=== PATIENT | male | born 1950 | race Caucasian/White ===

== ENCOUNTER → 2018-09-02 | Outpatient (CLI) | payer OTHER | END | disposition home or self-care (01) | LOC: SHCH 14:03 | PROVIDERS: ATTEND Internal Medicine Cardiovascular Disease | DX: I65.23 Occlusion and stenosis of bilateral carotid arteries (principal); I63.9 Cerebral infarction, unspecified | CPT/HCPCS: 93880 ==

== ENCOUNTER → 2019-04-26 | Outpatient (CLI) | payer OTHER | END | disposition home or self-care (01) | LOC: SHCH 12:24 | PROVIDERS: ATTEND Internal Medicine Cardiovascular Disease | DX: I11.9 Hypertensive heart disease without heart failure (principal) | CPT/HCPCS: 93306 ==

== ENCOUNTER → 2020-05-24 | Outpatient (CLI) | payer OTHER ==
[~2020-05-24] MED LIST: ARIP15TA7 PO; CARBIDOPA PO; CLOP75TA32 PO; DULO30CA52 PO; LANS15CA17 PO; LOSA100T58 PO; METO-391 PO; ROSU20TA31 PO; SODIUM CHLORIDE 0.9% 1000ML 1,000 ML IV ONE; TAMS-1 PO
== END | disposition home or self-care (01) ==
LOC: DAH 10:00 → EDSTATUS 05-30 08:15
PROVIDERS: ATTEND Internal Medicine Gastroenterology
DX: R15.9 Full incontinence of feces (principal); Z20.828 Contact with and (suspected) exposure to other viral communicable diseases; R19.7 Diarrhea, unspecified; R19.4 Change in bowel habit
CPT/HCPCS: 36415; C9803; U0003; J7030

== ENCOUNTER → 2020-08-14 | Outpatient (CLI) | payer OTHER ==
[~2020-08-14] MED LIST changes: -SODIUM CHLORIDE 0.9% 1000ML 1,000 ML IV ONE
== END | disposition home or self-care (01) ==
LOC: SHCH 12:47
PROVIDERS: ATTEND Internal Medicine Cardiovascular Disease
DX: I70.293 Other atherosclerosis of native arteries of extremities, bilateral legs (principal); I87.2 Venous insufficiency (chronic) (peripheral)
CPT/HCPCS: 93925; 93970

== ENCOUNTER 2021-06-06 12:14 | Inpatient (IN) | payer OTHER ==
[~2021-06-06] VITALS: Ht 177.8 cm; Wt 99.8 kg
[~2021-06-06 12:14] MED LIST changes: +ARIP15TA18 PO; -ARIP15TA7 PO
[2021-06-06] MEDS ORDERED: ONDANSETRON 4MG INJ IVP ONE (13:00)
[2021-06-06] MEDS ORDERED: CLINDAMYCIN IVPB 600MG/50ML 50 ML IV ONE (13:00)
[2021-06-06] MEDS ORDERED: MORPHINE 4 MG SYG IV PRN (13:00)
[2021-06-06 13:49] LABS: APPEARANCE,URINE Clear (CLEAR); BILIRUBIN,URINE Negative (NEGATIVE); COLOR,URINE Yellow (YELLOW); GLUCOSE, URINE (UA) Negative (NEGATIVE); KETONES,URINE Negative (NEGATIVE); LEUKOCYTE ESTERASE ,URINE Negative (NEGATIVE); NITRATE,URINE Negative (NEGATIVE); OCCULT BLOOD,URINE Negative (NEGATIVE); PH,URINE 6.5 (5.0-8.0); PROTEIN,URINE Negative (NEGATIVE); UROBILINOGEN,URINE 0.2 mg/dL (0.2-1.0)
[2021-06-06 14:06] LABS: BASOPHILS % (AUTO) 0.9 % (0.0-5.0); EOSINOPHILS % (AUTO) 6.7 % (0.0-8.0); HEMATOCRIT 37.5 % (42-54); LYMPHOCYTES % (AUTO) 25.6 % (21.0-51.0); MEAN CORPUSCULAR HEMOGLOBIN 28.3 pg (27.0-33.0); MEAN CORPUSCULAR HGB CONC 33.6 g/dL (32.0-36.0); MEAN CORPUSCULAR VOLUME 84.1 fL (79-99); MONOCYTES % (AUTO) 12.2 % (3.0-13.0); NEUTROPHILS % (AUTO) 54.3 % (40.0-77.0); PLATELET COUNT (AUTO) 226 K/uL (130-400); RED BLOOD CELL COUNT(AUTO) 4.46 MIL/uL (4.50-6.20); RED CELL DISTRIBUTION WIDTH 13.2 % (11.0-15.5)
[2021-06-06 14:10] LABS: CREATININE 0.9 mg/dL (0.5-1.5); POTASSIUM 3.2 mmol/L (3.5-5.1)
[2021-06-06 14:17] LABS: ALBUMIN 3.4 g/dL (3.5-5.0); BILIRUBIN,TOTAL 0.3 mg/dL (0.2-1.0)
[2021-06-06] MEDS: CLINDAMYCIN IVPB 600MG/50ML 50 ML IV SCH (15:30)
[2021-06-06] MEDS ORDERED: ONDANSETRON 4MG INJ IV PRN (15:30)
[2021-06-06] MEDS ORDERED: ACETAMINOPHEN 325 MG TAB PO PRN ×2 (15:30)
[2021-06-06 15:51] LABS: HEMOGLOBIN A1C 6.2 % (4.0-6.0)
[2021-06-06] MEDS ORDERED: POTASSIUM CHLORIDE 10% ELIXIR 20 MEQ/15 ML UDCUP PO PRN (19:30)
[2021-06-06] MEDS ORDERED: POTASSIUM CHLORIDE 20MEQ/100ML 100 ML IV PRN (19:30)
[2021-06-06] MEDS ORDERED: MORPHINE 2 MG SYG IVP PRN (19:30)
[2021-06-06] MEDS ORDERED: LIDOCAINE HCL-MPF 1% 2ML VIAL IV PRN (19:30)
[2021-06-06 20:05] VITALS: BP 115/52
[2021-06-06] MEDS: MORPHINE 4 MG SYG IV PRN (20:44)
[2021-06-06] MEDS: FAMOTIDINE 20MG TAB PO SCH (21:58)
[2021-06-06] MEDS: KCL 20 MEQ ERTAB PO PRN (21:58)
[2021-06-06 23:28] VITALS: BP 128/58
[2021-06-07] MEDS: CLINDAMYCIN IVPB 600MG/50ML 50 ML IV SCH ×4 (00:02→23:15)
[2021-06-07] MEDS: KCL 20 MEQ ERTAB PO PRN ×2 (00:03→02:02)
[2021-06-07] MEDS ORDERED: TORS20TA4 PO (00:22)
[2021-06-07] MEDS ORDERED: AMLO-257 PO (00:23)
[2021-06-07] MEDS ORDERED: POTA-79 PO (00:27)
[2021-06-07] MEDS ORDERED: SERT-440 PO (00:29)
[2021-06-07] MEDS ORDERED: HYDROMORPHONE PO (00:35)
[2021-06-07] MEDS ORDERED: PRED20TA3 PO (00:35)
[2021-06-07 03:09] VITALS: BP 125/64
[2021-06-07 03:51] LABS: HEMATOCRIT 38.9 % (42-54); MEAN CORPUSCULAR HEMOGLOBIN 27.9 pg (27.0-33.0); MEAN CORPUSCULAR HGB CONC 32.6 g/dL (32.0-36.0); MEAN CORPUSCULAR VOLUME 85.3 fL (79-99); RED BLOOD CELL COUNT(AUTO) 4.56 MIL/uL (4.50-6.20); RED CELL DISTRIBUTION WIDTH 13.4 % (11.0-15.5); WHITE BLOOD COUNT (AUTO) 7.4 K/uL (4.8-10.8)
[2021-06-07] MEDS: MORPHINE 4 MG SYG IV PRN ×2 (04:22→22:22)
[2021-06-07 05:08] LABS: POTASSIUM 4.3 mmol/L (3.5-5.1)
[2021-06-07] MEDS ORDERED: ENOXAPARIN SODIUM 40 MG/0.4 ML SYRINGE SQ SCH (09:00)
[2021-06-07] MEDS: FAMOTIDINE 20MG TAB PO SCH ×2 (09:00→20:16)
[2021-06-07] MEDS: ENOXAPARIN SODIUM 40 MG/0.4 ML SYRINGE SQ SCH (09:01)
[2021-06-07 09:56] VITALS: BP 144/70
[2021-06-07] MEDS: CARBIDOPA 100 MG PO SCH ×2 (10:30→18:30)
[2021-06-07 13:43] VITALS: BP 118/62
[2021-06-07] MEDS: HYDROMORPHONE HCL 2 MG TAB PO SCH ×2 (14:09→20:18)
[2021-06-07 16:21] VITALS: BP 122/57
[2021-06-07] MEDS: METOPROLOL TARTRATE 25 MG TAB PO SCH (20:17)
[2021-06-07 20:26] VITALS: BP 117/44
[2021-06-07] MEDS ORDERED: METOPROLOL SUCCINATE 50 MG TAB.SR.24H PO SCH (21:00)
[2021-06-08 00:43] VITALS: BP 104/40
[2021-06-08 00:50] VITALS: BP 123/53
[2021-06-08 04:16] VITALS: BP 139/89
[2021-06-08] MEDS: CLINDAMYCIN IVPB 600MG/50ML 50 ML IV SCH (06:39)
[2021-06-08] MEDS: MORPHINE 4 MG SYG IV PRN (06:45)
[2021-06-08 07:35] VITALS: BP 141/66
[2021-06-08] MEDS ORDERED: SERTRALINE HCL 50 MG TABLET PO SCH (08:00)
[2021-06-08] MEDS ORDERED: AMLODIPINE 5 MG TAB PO SCH (08:00)
[2021-06-08] MEDS ORDERED: KCL 20 MEQ ERTAB PO SCH (08:00)
[2021-06-08] MEDS ORDERED: TORSEMIDE 20 MG TAB PO SCH (08:00)
[2021-06-08] MEDS ORDERED: ATORVASTATIN 40 MG TABLET PO SCH (08:00)
[2021-06-08] MEDS ORDERED: ARIPIPRAZOLE 5 MG TABLET PO SCH (09:00)
[2021-06-08] MEDS ORDERED: TAMSULOSIN HCL 0.4 MG CAP.ER.24H PO SCH (09:00)
[2021-06-08] MEDS ORDERED: CLOPIDOGREL 75MG TAB PO SCH (09:00)
[2021-06-08] MEDS ORDERED: LOSARTAN 100 MG TABLET PO SCH (09:00)
[2021-06-08] MEDS: CARBIDOPA-LEVODOPA 25-100 TAB PO SCH ×2 (09:00→09:30)
[2021-06-08] MEDS ORDERED: ASPIRIN 81 MG EC TAB PO SCH (09:00)
[2021-06-08] MEDS: METOPROLOL TARTRATE 25 MG TAB PO SCH (09:29)
[2021-06-08] MEDS: ENOXAPARIN SODIUM 40 MG/0.4 ML SYRINGE SQ SCH (09:32)
[2021-06-08] MEDS: HYDROMORPHONE HCL 2 MG TAB PO SCH (09:41)
[2021-06-08] MEDS: FAMOTIDINE 20MG TAB PO SCH (09:41)
[2021-06-08 11:30] VITALS: BP 106/55
[2021-06-08] MEDS ORDERED: ALBUTEROL 0.083% 2.5 MG/3 ML INH IH SCH (13:00)
[2021-06-08] MEDS ORDERED: ALBU8.5H8 IH (13:36)
[2021-06-08] MEDS ORDERED: CLIN-141 PO (13:36)
== END 2021-06-08 14:35 | disposition home health service (06) | DRG 603 ==
LOC: EDH 12:14 → OBSVTOIN 15:18 → EDHIP 15:18 → 3BH 18:51
PROVIDERS: ADMIT Internal Medicine; ATTEND Internal Medicine
DX: L03.115 Cellulitis of right lower limb (principal); L97.919 Non-pressure chronic ulcer of unspecified part of right lower leg with unspecified severity; E78.5 Hyperlipidemia, unspecified; I10 Essential (primary) hypertension; J44.9 Chronic obstructive pulmonary disease, unspecified; K21.9 Gastro-esophageal reflux disease without esophagitis; G20 Parkinson's disease; F02.80 Dementia in other diseases classified elsewhere, unspecified severity, without behavioral disturbance, psychotic disturbance, mood disturbance, and anxiety; I25.10 Atherosclerotic heart disease of native coronary artery without angina pectoris; F17.200 Nicotine dependence, unspecified, uncomplicated; I73.9 Peripheral vascular disease, unspecified; I87.8 Other specified disorders of veins; I83.009 Varicose veins of unspecified lower extremity with ulcer of unspecified site; Z95.5 Presence of coronary angioplasty implant and graft; Z98.49 Cataract extraction status, unspecified eye; Z86.73 Personal history of transient ischemic attack (TIA), and cerebral infarction without residual deficits; Z83.3 Family history of diabetes mellitus; Z82.49 Family history of ischemic heart disease and other diseases of the circulatory system
CPT/HCPCS: 36415; 73590; 80048; 80053; 81003; 83036; 83605; 84145; 84484; 85025; 85027; 85651; 86140; 87040; 87088; 87641; 93925; 94640; G0378; J1650; J2270; J2405; J3490

== ENCOUNTER 2021-07-16 11:23 | Inpatient (IN) | payer MEDICARE, OTHER ==
[~2021-07-16] VITALS: Ht 177.8 cm; Wt 102.1 kg
[~2021-07-16 11:23] MED LIST changes: +ALBU8.5H8 IH; +AMLO-257 PO; +CLIN-141 PO; +HYDROMORPHONE PO; +POTA-79 PO; +PRED20TA3 PO; +SERT-440 PO; +TORS20TA4 PO
[2021-07-16 12:52] LABS: BASOPHILS % (AUTO) 0.7 % (0.0-5.0); EOSINOPHILS % (AUTO) 4.8 % (0.0-8.0); LYMPHOCYTES % (AUTO) 15.5 % (21.0-51.0); MEAN CORPUSCULAR HEMOGLOBIN 28.4 pg (27.0-33.0); MEAN CORPUSCULAR HGB CONC 34.1 g/dL (32.0-36.0); MEAN CORPUSCULAR VOLUME 83.2 fL (79-99); MONOCYTES % (AUTO) 10.9 % (3.0-13.0); NEUTROPHILS % (AUTO) 67.7 % (40.0-77.0); PLATELET COUNT (AUTO) 224 K/uL (130-400); RED BLOOD CELL COUNT(AUTO) 4.69 MIL/uL (4.50-6.20); RED CELL DISTRIBUTION WIDTH 13.5 % (11.0-15.5); WHITE BLOOD COUNT (AUTO) 11.6 K/uL (4.8-10.8)
[2021-07-16 13:00] LABS: CREATININE 0.9 mg/dL (0.5-1.5); POTASSIUM 4.1 mmol/L (3.5-5.1)
[2021-07-16] MEDS ORDERED: HYDROCODONE/ACETAMINOPHEN 10/325 MG TAB PO SCH (13:00)
[2021-07-16 13:04] LABS: ALBUMIN 3.6 g/dL (3.5-5.0); BILIRUBIN,TOTAL 0.4 mg/dL (0.2-1.0); CRP QUANTITATIVE 20.7 mg/L (0.00-9.0); TOTAL PROTEIN, SERUM 7.2 g/dL (6.0-8.3)
[2021-07-16 13:15] LABS: B-TYPE NATRIURETIC PEPTIDE 68 pg/mL (0-100)
[2021-07-16 13:19] LABS: APPEARANCE,URINE Cloudy (CLEAR); BILIRUBIN,URINE Negative (NEGATIVE); COLOR,URINE Yellow (YELLOW); GLUCOSE, URINE (UA) Negative (NEGATIVE); KETONES,URINE Negative (NEGATIVE); LEUKOCYTE ESTERASE ,URINE Negative (NEGATIVE); NITRATE,URINE Negative (NEGATIVE); OCCULT BLOOD,URINE Negative (NEGATIVE); PROTEIN,URINE Negative (NEGATIVE); UROBILINOGEN,URINE 0.2 mg/dL (0.2-1.0)
[2021-07-16] MEDS ORDERED: 0.9%NACL 1000ML 1,000 ML IV SCH (13:30)
[2021-07-16 13:37] LABS: BACTERIA,URINE None Seen /HPF (None Seen); RBC,URINE 0-1 /HPF (0-1); SQUAMOUS EPITHELIAL CELL,UR 0-2 /HPF (0-2); WBC,URINE 0-1 /HPF (0-1)
[2021-07-16] MEDS ORDERED: FENTANYL 50 MCG/HR PATCH TD SCH (14:00)
[2021-07-16] MEDS ORDERED: NITROGLYCERIN 1GM OINT 1 INCH/1GM TD PRN (14:30)
[2021-07-16] MEDS ORDERED: ACETAMINOPHEN 325 MG TAB PO PRN ×2 (14:30)
[2021-07-16] MEDS ORDERED: ONDANSETRON 4MG INJ IV PRN (14:30)
[2021-07-16] MEDS ORDERED: HYDRALAZINE 20MG/ML VIAL IV PRN (14:30)
[2021-07-16 14:54] LABS: INR 1.02 (0.85-1.15); PROTHROMBIN TIME 11.1 SEC (9.6-11.6)
[2021-07-16] MEDS: CLINDAMYCIN IVPB 600MG/50ML 50 ML IV SCH ×2 (15:35→22:58)
[2021-07-16] MEDS: FUROSEMIDE 40MG VIAL IV SCH ×2 (15:35→23:09)
[2021-07-16] MEDS ORDERED: METOLAZONE 2.5 MG TABLET PO ONE (16:00)
[2021-07-16] MEDS ORDERED: TERA2CAP4 PO (21:36)
[2021-07-16] MEDS ORDERED: AMLO-257 PO (21:36)
[2021-07-16] MEDS ORDERED: ARIP15TA18 PO (21:36)
[2021-07-16] MEDS ORDERED: LOSA100T58 PO (21:36)
[2021-07-16] MEDS ORDERED: SERT-440 PO (21:36)
[2021-07-16] MEDS ORDERED: CLOP75TA32 PO (21:36)
[2021-07-16] MEDS ORDERED: OXYC1TAB12 PO (21:36)
[2021-07-16] MEDS ORDERED: ROSU20TA31 PO (21:36)
[2021-07-16] MEDS ORDERED: TORS20TA4 PO (21:36)
[2021-07-16] MEDS ORDERED: METO50TA18 PO (21:36)
[2021-07-16] MEDS ORDERED: CARB-37 PO (21:36)
[2021-07-16] MEDS ORDERED: POTA-202 PO (21:36)
[2021-07-17] MEDS: FUROSEMIDE 40MG VIAL IV SCH (07:00)
[2021-07-17 07:44] LABS: CREATININE 1.2 mg/dL (0.5-1.5); POTASSIUM 3.2 mmol/L (3.5-5.1)
[2021-07-17 08:12] LABS: HEMATOCRIT 44.4 % (42-54); MEAN CORPUSCULAR HEMOGLOBIN 27.5 pg (27.0-33.0); MEAN CORPUSCULAR HGB CONC 33.6 g/dL (32.0-36.0); MEAN CORPUSCULAR VOLUME 82.1 fL (79-99); RED BLOOD CELL COUNT(AUTO) 5.41 MIL/uL (4.50-6.20); RED CELL DISTRIBUTION WIDTH 13.6 % (11.0-15.5); WHITE BLOOD COUNT (AUTO) 12.3 K/uL (4.8-10.8)
[2021-07-17] MEDS: CLINDAMYCIN IVPB 600MG/50ML 50 ML IV SCH ×2 (08:21→14:06)
[2021-07-17] MEDS ORDERED: ARIPIPRAZOLE 5 MG TABLET PO SCH (09:00)
[2021-07-17] MEDS ORDERED: CLOPIDOGREL 75MG TAB PO SCH (09:00)
[2021-07-17] MEDS ORDERED: LEVODOPA PO SCH (09:00)
[2021-07-17] MEDS ORDERED: METOPROLOL TARTRATE 50 MG TAB PO SCH (09:00)
[2021-07-17] MEDS ORDERED: SERTRALINE HCL 50 MG TABLET PO SCH (09:00)
[2021-07-17] MEDS ORDERED: ENOXAPARIN SODIUM 40 MG/0.4 ML SYRINGE SQ SCH (09:00)
[2021-07-17] MEDS ORDERED: KCL 20 MEQ ERTAB PO SCH ×2 (09:00)
[2021-07-17] MEDS ORDERED: AMLODIPINE 5 MG TAB PO SCH (09:00)
[2021-07-17] MEDS ORDERED: CARBIDOPA PO SCH (09:00)
[2021-07-17 12:04] VITALS: BP 146/49
[2021-07-17] MEDS ORDERED: FUROSEMIDE 40MG VIAL IV SCH (15:00)
[2021-07-17] MEDS ORDERED: ATORVASTATIN 40 MG TABLET PO SCH (21:00)
[2021-07-17] MEDS ORDERED: TERAZOSIN 2 MG CAPSULE PO SCH (21:00)
[2021-07-31] MEDS ORDERED: METO25TA6 PO (19:26)
[2021-07-31] MEDS ORDERED: LACT1CAP90 PO (19:34)
[2021-07-31] MEDS ORDERED: NICO-704 TD (19:34)
[2021-07-31] MEDS ORDERED: TIOT4MIS5 IH (19:34)
[2021-07-31] MEDS ORDERED: NITR0.4T50 SL (19:34)
[2021-07-31] MEDS ORDERED: CLIN-116 PO (19:34)
[2021-08-04] MEDS ORDERED: CEFU500T67 PO (12:16)
[2021-08-04] MEDS ORDERED: RIVA2.5T PO (12:16)
[2021-08-04] MEDS ORDERED: DOXY100C5 PO (12:16)
== END 2021-07-17 16:45 | disposition left against medical advice (07) | DRG 603 ==
LOC: EDH 11:23 → EDHIP 14:26
PROVIDERS: ADMIT Internal Medicine; ATTEND Internal Medicine
DX: L03.116 Cellulitis of left lower limb (principal); L97.929 Non-pressure chronic ulcer of unspecified part of left lower leg with unspecified severity; L97.919 Non-pressure chronic ulcer of unspecified part of right lower leg with unspecified severity; E87.1 Hypo-osmolality and hyponatremia; I74.09 Other arterial embolism and thrombosis of abdominal aorta; E11.621 Type 2 diabetes mellitus with foot ulcer; I87.2 Venous insufficiency (chronic) (peripheral); E11.51 Type 2 diabetes mellitus with diabetic peripheral angiopathy without gangrene; L03.115 Cellulitis of right lower limb; E78.5 Hyperlipidemia, unspecified; Z20.822 Contact with and (suspected) exposure to COVID-19; G89.29 Other chronic pain; I10 Essential (primary) hypertension; J44.9 Chronic obstructive pulmonary disease, unspecified; E78.00 Pure hypercholesterolemia, unspecified; I25.10 Atherosclerotic heart disease of native coronary artery without angina pectoris; F17.210 Nicotine dependence, cigarettes, uncomplicated; E87.6 Hypokalemia; I25.2 Old myocardial infarction; Z95.5 Presence of coronary angioplasty implant and graft; Z86.73 Personal history of transient ischemic attack (TIA), and cerebral infarction without residual deficits; Z83.3 Family history of diabetes mellitus; Z82.3 Family history of stroke; Z84.89 Family history of other specified conditions; Z82.5 Family history of asthma and other chronic lower respiratory diseases; Z82.49 Family history of ischemic heart disease and other diseases of the circulatory system
CPT/HCPCS: 36415; 71045; 80048; 80053; 81001; 82948; 83605; 83880; 84484; 85025; 85027; 85378; 85610; 85730; 86140; 87040; 87070; 87076; 87077; 87186; 87635; 93005; 93970; G0378; J1650; J1940; J3490; J7030

== ENCOUNTER 2021-09-01 05:36 | Emergency (ER) | payer OTHER ==
[~2021-09-01] VITALS: Ht 177.8 cm; Wt 102.1 kg
[~2021-09-01 05:36] MED LIST changes: -ALBU8.5H8 IH; +CARB-37 PO; -CARBIDOPA PO; +CEFU500T67 PO; -CLIN-141 PO; +DOXY100C5 PO; -DULO30CA52 PO; +LACT1CAP90 PO; -LANS15CA17 PO; -METO-391 PO; +METO25TA6 PO; +NICO-704 TD; +NITR0.4T50 SL; +POTA-202 PO; -POTA-79 PO; -PRED20TA3 PO; +RIVA2.5T PO; -TAMS-1 PO; +TERA2CAP4 PO; +TIOT4MIS5 IH
[2021-09-01 07:09] LABS: BASOPHILS % (AUTO) 0.5 % (0.0-5.0); EOSINOPHILS % (AUTO) 6.8 % (0.0-8.0); HEMATOCRIT 38.2 % (42-54); LYMPHOCYTES % (AUTO) 13.8 % (21.0-51.0); MEAN CORPUSCULAR HEMOGLOBIN 27.4 pg (27.0-33.0); MEAN CORPUSCULAR HGB CONC 33.5 g/dL (32.0-36.0); MEAN CORPUSCULAR VOLUME 81.6 fL (79-99); MONOCYTES % (AUTO) 11.9 % (3.0-13.0); NEUTROPHILS % (AUTO) 66.5 % (40.0-77.0); PLATELET COUNT (AUTO) 167 K/uL (130-400); RED BLOOD CELL COUNT(AUTO) 4.68 MIL/uL (4.50-6.20); RED CELL DISTRIBUTION WIDTH 13.5 % (11.0-15.5); WHITE BLOOD COUNT (AUTO) 9.4 K/uL (4.8-10.8)
[2021-09-01 07:31] LABS: ALBUMIN 3.5 g/dL (3.5-5.0); BILIRUBIN,TOTAL 0.3 mg/dL (0.2-1.0); CREATININE 0.9 mg/dL (0.5-1.5); POTASSIUM 4.3 mmol/L (3.5-5.1); TOTAL PROTEIN, SERUM 6.9 g/dL (6.0-8.3)
[2021-09-01 09:23] VITALS: BP 123/78
== END 2021-09-01 09:24 | disposition home or self-care (01) ==
LOC: EDH 05:36
DX: M54.2 Cervicalgia (principal); R51.9 Headache, unspecified; I10 Essential (primary) hypertension; E78.00 Pure hypercholesterolemia, unspecified; J44.9 Chronic obstructive pulmonary disease, unspecified; G89.29 Other chronic pain; Z90.49 Acquired absence of other specified parts of digestive tract; Z72.0 Tobacco use; Z79.899 Other long term (current) drug therapy; W01.198A Fall on same level from slipping, tripping and stumbling with subsequent striking against other object, initial encounter; Y93.89 Activity, other specified; Y92.009 Unspecified place in unspecified non-institutional (private) residence as the place of occurrence of the external cause; Y99.8 Other external cause status
CPT/HCPCS: 36415; 70450; 71045; 72125; 80053; 84484; 85025; 93005

== ENCOUNTER 2021-11-16 12:54 | Emergency (ER) | payer OTHER ==
[~2021-11-16] VITALS: Ht 165.1 cm; Wt 102.1 kg
[2021-11-16 13:40] LABS: BASOPHILS % (AUTO) 0.6 % (0.0-5.0); EOSINOPHILS % (AUTO) 5.1 % (0.0-8.0); HEMATOCRIT 39.6 % (42-54); MEAN CORPUSCULAR HEMOGLOBIN 27.1 pg (27.0-33.0); MEAN CORPUSCULAR HGB CONC 34.1 g/dL (32.0-36.0); MEAN CORPUSCULAR VOLUME 79.5 fL (79-99); NEUTROPHILS % (AUTO) 61.7 % (40.0-77.0); PLATELET COUNT (AUTO) 224 K/uL (130-400); RED BLOOD CELL COUNT(AUTO) 4.98 MIL/uL (4.50-6.20); RED CELL DISTRIBUTION WIDTH 14.7 % (11.0-15.5); WHITE BLOOD COUNT (AUTO) 10.5 K/uL (4.8-10.8)
[2021-11-16 13:57] LABS: CREATININE 0.8 mg/dL (0.5-1.5)
[2021-11-16 14:00] LABS: ALBUMIN 3.5 g/dL (3.5-5.0); BILIRUBIN,TOTAL 0.4 mg/dL (0.2-1.0); TOTAL PROTEIN, SERUM 7.2 g/dL (6.0-8.3)
[2021-11-16] MEDS ORDERED: CEPH500B PO (15:15)
[2021-11-16] MEDS ORDERED: SULF1TAB42 PO (15:15)
[2021-11-16] MEDS ORDERED: CEFTRIAXONE 1G VIAL IVP ONE (15:30)
[2021-11-16] MEDS ORDERED: SULFAMETHOX-TMP DS 800/160 TAB PO SCH (15:30)
[2021-11-16 16:32] VITALS: BP 115/65
== END 2021-11-16 16:33 | disposition home or self-care (01) ==
LOC: EDH 12:54
DX: L03.115 Cellulitis of right lower limb (principal); E78.00 Pure hypercholesterolemia, unspecified; I10 Essential (primary) hypertension; J44.9 Chronic obstructive pulmonary disease, unspecified; F17.210 Nicotine dependence, cigarettes, uncomplicated; Z95.5 Presence of coronary angioplasty implant and graft; Z90.49 Acquired absence of other specified parts of digestive tract; Z79.899 Other long term (current) drug therapy
CPT/HCPCS: 36415; 80053; 85025; 93971; 96374; 99284; J0696

== ENCOUNTER 2022-01-18 09:53 | Emergency (ER) | payer OTHER ==
[~2022-01-18] VITALS: Ht 177.8 cm; Wt 102.1 kg
[~2022-01-18 09:53] MED LIST changes: +CEPH500B PO; +SULF1TAB42 PO
[2022-01-18] MEDS ORDERED: HYDROCODONE/ACETAMINOPHEN 10/325 MG TAB PO ONE (10:30)
[2022-01-18] MEDS ORDERED: KETOROLAC 15MG/ML VIAL (15MG/ML) IV ONE (10:30)
[2022-01-18] MEDS ORDERED: ACET-2079 PO (11:51)
[2022-01-18 11:52] VITALS: BP 141/61
== END 2022-01-18 12:19 | disposition home or self-care (01) ==
LOC: EDH 09:53
DX: R51.9 Headache, unspecified (principal); M54.2 Cervicalgia; E78.00 Pure hypercholesterolemia, unspecified; F17.200 Nicotine dependence, unspecified, uncomplicated; I10 Essential (primary) hypertension; G20 Parkinson's disease; J44.9 Chronic obstructive pulmonary disease, unspecified; Z79.02 Long term (current) use of antithrombotics/antiplatelets; Z79.1 Long term (current) use of non-steroidal anti-inflammatories (NSAID); Z79.899 Other long term (current) drug therapy; Z90.49 Acquired absence of other specified parts of digestive tract; Z95.5 Presence of coronary angioplasty implant and graft; W07.XXXA Fall from chair, initial encounter; Y93.89 Activity, other specified; Y92.89 Other specified places as the place of occurrence of the external cause; Y99.8 Other external cause status
CPT/HCPCS: 70450; 72125; 96374; 99285; J1885

== ENCOUNTER 2022-12-29 10:55 | Emergency (ER) | payer OTHER ==
[~2022-12-29] VITALS: Ht 177.8 cm; Wt 106.6 kg
[~2022-12-29 10:55] MED LIST changes: -AMLO-257 PO; -CEFU500T67 PO; -CEPH500B PO; -DOXY100C5 PO; -HYDROMORPHONE PO; -LACT1CAP90 PO; -LOSA100T58 PO; +LOSA100T59 PO; -RIVA2.5T PO; -SULF1TAB42 PO; -TERA2CAP4 PO
[2022-12-29 10:56] VITALS: BP 145/57
[2022-12-30] MEDS ORDERED: PRED20TA3 PO (10:19)
[2022-12-30] MEDS ORDERED: AZIT250T9 PO (10:19)
== END 2022-12-29 12:33 | disposition left against medical advice (07) ==
LOC: EDH 10:55
DX: R05.9 Cough, unspecified (principal); Z53.21 Procedure and treatment not carried out due to patient leaving prior to being seen by health care provider; Z20.822 Contact with and (suspected) exposure to COVID-19
CPT/HCPCS: 71045; 99281; 87635; 87804 ×2; C9803

== ENCOUNTER 2022-12-30 03:51 | Emergency (ER) | payer OTHER ==
[~2022-12-30] VITALS: Ht 177.8 cm; Wt 106.6 kg
[2022-12-30] MEDS ORDERED: SOLU-MEDROL 125MG VIAL IVP ONE (04:30)
[2022-12-30] MEDS ORDERED: AZITHROMYCIN 250 MG TABLET PO ONE (04:30)
[2022-12-30] MEDS ORDERED: CEFTRIAXONE 1G VIAL IVPB ONE (04:30)
[2022-12-30] MEDS ORDERED: MAGNESIUM 2GM PREMIX 50ML 50 ML IV SCH (04:30)
[2022-12-30] MEDS ORDERED: IPRATROPIUM/ALBUTEROL SULFATE 3 ML SOLUTION IH ONE (04:30)
[2022-12-30 04:57] LABS: BASOPHILS % (AUTO) 0.5 % (0.0-5.0); EOSINOPHILS % (AUTO) 5.6 % (0.0-8.0); HEMATOCRIT 36.6 % (42-54); LYMPHOCYTES % (AUTO) 16.3 % (21.0-51.0); MEAN CORPUSCULAR HEMOGLOBIN 25.8 pg (27.0-33.0); MEAN CORPUSCULAR HGB CONC 32.5 g/dL (32.0-36.0); MEAN CORPUSCULAR VOLUME 79.2 fL (79-99); MONOCYTES % (AUTO) 13.3 % (3.0-13.0); NEUTROPHILS % (AUTO) 63.9 % (40.0-77.0); PLATELET COUNT (AUTO) 206 K/uL (130-400); RED BLOOD CELL COUNT(AUTO) 4.62 MIL/uL (4.50-6.20); RED CELL DISTRIBUTION WIDTH 14.9 % (11.0-15.5); WHITE BLOOD COUNT (AUTO) 7.9 K/uL (4.8-10.8)
[2022-12-30 05:15] LABS: CREATININE 0.7 mg/dL (0.5-1.5); INR 0.99 (0.85-1.15); POTASSIUM 4.4 mmol/L (3.5-5.1); PROTHROMBIN TIME 10.8 SEC (9.6-11.6)
[2022-12-30 05:16] LABS: PARTIAL THROMBOPLASTIN TIME 27.5 SEC (26.3-35.5)
[2022-12-30 05:20] LABS: ALBUMIN 3.3 g/dL (3.5-5.0); TOTAL PROTEIN, SERUM 6.7 g/dL (6.0-8.3)
[2022-12-30] MEDS ORDERED: AZIT250T9 PO (10:19)
[2022-12-30] MEDS ORDERED: PRED20TA3 PO (10:19)
[2022-12-30 10:54] VITALS: BP 149/61
== END 2022-12-30 10:56 | disposition home or self-care (01) ==
LOC: EDH 03:51
DX: J44.1 Chronic obstructive pulmonary disease with (acute) exacerbation (principal); E87.1 Hypo-osmolality and hyponatremia; E78.00 Pure hypercholesterolemia, unspecified; I10 Essential (primary) hypertension; F17.210 Nicotine dependence, cigarettes, uncomplicated; Z79.52 Long term (current) use of systemic steroids; Z79.899 Other long term (current) drug therapy; Z95.5 Presence of coronary angioplasty implant and graft; Z20.822 Contact with and (suspected) exposure to COVID-19
CPT/HCPCS: 99285; 93970; 96365; 71045; 87635; 96366; 96375; 82550; 84484; 80053; 85025; 85610; 85730; 87040 ×2; 87804 ×2; 83605; 36415; 96368; 93005; 94640; C9803; J3475; J2930; J0696

== ENCOUNTER 2023-01-11 23:36 | Emergency (ER) | payer OTHER ==
[~2023-01-11] VITALS: Ht 177.8 cm; Wt 106.6 kg
[~2023-01-11 23:36] MED LIST changes: +AZIT250T9 PO; +PRED20TA3 PO; -ROSU20TA31 PO; +ROSU20TA73 PO
[2023-01-12 00:05] LABS: BASOPHILS % (AUTO) 0.4 % (0.0-5.0); EOSINOPHILS % (AUTO) 3.6 % (0.0-8.0); HEMATOCRIT 36.8 % (42-54); LYMPHOCYTES % (AUTO) 23.9 % (21.0-51.0); MEAN CORPUSCULAR HEMOGLOBIN 26.6 pg (27.0-33.0); MEAN CORPUSCULAR HGB CONC 33.2 g/dL (32.0-36.0); MEAN CORPUSCULAR VOLUME 80.3 fL (79-99); MONOCYTES % (AUTO) 10.4 % (3.0-13.0); NEUTROPHILS % (AUTO) 61.1 % (40.0-77.0); PLATELET COUNT (AUTO) 227 K/uL (130-400); RED BLOOD CELL COUNT(AUTO) 4.58 MIL/uL (4.50-6.20); RED CELL DISTRIBUTION WIDTH 14.7 % (11.0-15.5); WHITE BLOOD COUNT (AUTO) 10.9 K/uL (4.8-10.8)
[2023-01-12 00:13] LABS: CREATININE 0.9 mg/dL (0.5-1.5)
[2023-01-12 00:18] LABS: ALBUMIN 3.2 g/dL (3.5-5.0); MAGNESIUM 2.1 mg/dL (1.80-2.40); TOTAL PROTEIN, SERUM 6.7 g/dL (6.0-8.3)
[2023-01-12] MEDS ORDERED: IPRATROPIUM/ALBUTEROL SULFATE 3 ML SOLUTION IH ONE ×2 (00:30→03:30)
[2023-01-12] MEDS ORDERED: SOLU-MEDROL 125MG VIAL IVP ONE (00:30)
[2023-01-12] MEDS ORDERED: DOXYCYCLINE HYCLATE 100 MG TABLET PO SCH (01:00)
[2023-01-12] MEDS ORDERED: SOLU-MEDROL 40MG VIAL ONE (01:58)
[2023-01-12] MEDS ORDERED: PRED20TA3 PO (04:11)
[2023-01-12] MEDS ORDERED: DOXY-469 PO (04:11)
[2023-01-12 05:02] VITALS: BP 141/85
== END 2023-01-12 05:03 | disposition home or self-care (01) ==
LOC: EDH 23:36
DX: J44.1 Chronic obstructive pulmonary disease with (acute) exacerbation (principal); L03.115 Cellulitis of right lower limb; I10 Essential (primary) hypertension; E78.00 Pure hypercholesterolemia, unspecified; F17.200 Nicotine dependence, unspecified, uncomplicated; Z20.822 Contact with and (suspected) exposure to COVID-19; Z79.899 Other long term (current) drug therapy; Z95.5 Presence of coronary angioplasty implant and graft
CPT/HCPCS: 99285; 71045; 87635; 83735; 84484 ×2; 80053; 83880; 85025; 87804 ×2; 36415; 93005 ×2; 96374; 94640 ×2; C9803; J2920

== ENCOUNTER 2023-09-16 12:47 | Emergency (ER) | payer OTHER ==
[~2023-09-16] VITALS: Ht 177.8 cm; Wt 100.7 kg
[~2023-09-16 12:47] MED LIST changes: +AMLO-257 PO; -AZIT250T9 PO; -CARB-37 PO; +CARB-38 PO; +DULO60CA64 PO; +LANS15CA17 PO; -NICO-704 TD; -PRED20TA3 PO; -SERT-440 PO; -TIOT4MIS5 IH
[2023-09-16 12:48] VITALS: BP 136/69; PULSE 79; RESP 20
== END 2023-09-16 14:27 | disposition left against medical advice (07) ==
LOC: EDH 12:47
DX: M54.50 Low back pain, unspecified (principal); Z53.21 Procedure and treatment not carried out due to patient leaving prior to being seen by health care provider
CPT/HCPCS: 99281

== ENCOUNTER 2023-12-05 19:38 | Emergency (ER) | payer OTHER ==
[~2023-12-05] VITALS: Ht 177.8 cm; Wt 96.6 kg
[2023-12-05 19:39] VITALS: BP 150/65; PULSE 77; RESP 18
== END 2023-12-05 22:26 | disposition left against medical advice (07) ==
LOC: EDH 19:38
DX: M54.50 Low back pain, unspecified (principal); Z53.21 Procedure and treatment not carried out due to patient leaving prior to being seen by health care provider
CPT/HCPCS: 71045; 84484; 93005; 99281

== ENCOUNTER 2023-12-19 00:21 | Emergency (ER) | payer OTHER ==
[~2023-12-19] VITALS: Ht 177.8 cm; Wt 96.6 kg
[2023-12-19] MEDS: OXYMETAZOLINE HCL SPRAY 15 ML BOTTLE EN SCH (00:39)
[2023-12-19 01:06] LABS: BASOPHILS # (AUTO) 0.05 K/uL (0.00-0.20); BASOPHILS % (AUTO) 0.5 % (0.0-5.0); EOSINOPHILS # (AUTO) 0.53 K/uL (0.00-0.70); EOSINOPHILS % (AUTO) 5.5 % (0.0-8.0); HEMATOCRIT 31.4 % (42-54); IMMATURE GRANULOCYTE ABSOLUTE 0.06 K/uL (0-1); LYMPHOCYTES # (AUTO) 1.5 K/uL (1.0-4.8); LYMPHOCYTES % (AUTO) 15.7 % (21.0-51.0); MEAN CORPUSCULAR HEMOGLOBIN 28.5 pg (27.0-33.0); MEAN CORPUSCULAR HGB CONC 35.4 g/dL (32.0-36.0); MEAN CORPUSCULAR VOLUME 80.7 fL (79-99); MONOCYTES # (AUTO) 1.4 K/uL (0.1-1.0); MONOCYTES % (AUTO) 14.2 % (3.0-13.0); NEUTROPHILS # (AUTO) 6.1 K/uL (1.8-7.7); NEUTROPHILS % (AUTO) 63.5 % (40.0-77.0); PLATELET COUNT (AUTO) 236 K/uL (130-400); RED BLOOD CELL COUNT(AUTO) 3.89 MIL/uL (4.50-6.20); RED CELL DISTRIBUTION WIDTH 12.3 % (11.0-15.5); WHITE BLOOD COUNT (AUTO) 9.6 K/uL (4.8-10.8)
[2023-12-19 01:19] LABS: INR <= 0.93 (0.85-1.15); PROTHROMBIN TIME 10.9 SEC (9.6-11.6)
[2023-12-19 01:20] VITALS: BP 158/62; PULSE 64; RESP 16; O2SAT 99
[2023-12-19 01:20] LABS: PARTIAL THROMBOPLASTIN TIME 33.3 SEC (26.3-35.5)
[2023-12-19] MEDS ORDERED: OXYM30SP27 NS (01:34)
== END 2023-12-19 01:42 | disposition home or self-care (01) ==
LOC: EDH 00:21
DX: R04.0 Epistaxis (principal); E78.00 Pure hypercholesterolemia, unspecified; I10 Essential (primary) hypertension; I25.10 Atherosclerotic heart disease of native coronary artery without angina pectoris; J44.9 Chronic obstructive pulmonary disease, unspecified; F17.200 Nicotine dependence, unspecified, uncomplicated; Z79.02 Long term (current) use of antithrombotics/antiplatelets; Z79.899 Other long term (current) drug therapy; Z95.5 Presence of coronary angioplasty implant and graft
CPT/HCPCS: 36415; 85025; 85610; 85730; 99282

== ENCOUNTER 2024-01-27 14:42 | Emergency (ER) | payer OTHER ==
[~2024-01-27] VITALS: Ht 177.8 cm; Wt 90.7 kg
[~2024-01-27 14:42] MED LIST changes: +AEC81 PO; -AMLO-257 PO; -ARIP15TA18 PO; +ARIP15TA66 PO; -DULO60CA64 PO; +Docusate Sodium 100 Mg Cap PO; +FERR-63 PO; -METO25TA6 PO; +METO50 PO; +NICO-777 TD; -POTA-202 PO; +TAMS-1 PO; +VENL150C5 PO
[2024-01-27] MEDS: TAMSULOSIN HCL 0.4 MG CAP.ER.24H PO ONE (16:30)
[2024-01-27 16:32] VITALS: BP 155/77; PULSE 96; RESP 17; O2SAT 97
[2024-01-27] MEDS ORDERED: TAMS-1 PO (16:34)
[2024-01-27 17:25] LABS: APPEARANCE,URINE CLEAR (CLEAR); BILIRUBIN,URINE NEGATIVE (NEGATIVE); COLOR,URINE LIGHT-YELLOW (YELLOW); GLUCOSE, URINE (UA) NEGATIVE (NEGATIVE); KETONES,URINE NEGATIVE (NEGATIVE); LEUKOCYTE ESTERASE ,URINE 250 Leu/uL (NEGATIVE); NITRATE,URINE 1+ (NEGATIVE); OCCULT BLOOD,URINE NEGATIVE (NEGATIVE); PH,URINE 6.5 (5.0-8.0); PROTEIN,URINE NEGATIVE (NEGATIVE); UROBILINOGEN,URINE 0.2 mg/dL (0.2-1.0)
[2024-01-27 17:28] LABS: BACTERIA,URINE RARE /HPF (None Seen); RBC,URINE 0-1 /HPF (0-1)
== END 2024-01-27 17:13 | disposition home or self-care (01) ==
LOC: EDH 14:42
DX: R33.9 Retention of urine, unspecified (principal); I10 Essential (primary) hypertension; E78.00 Pure hypercholesterolemia, unspecified; F17.200 Nicotine dependence, unspecified, uncomplicated; Z79.899 Other long term (current) drug therapy; Z98.890 Other specified postprocedural states
CPT/HCPCS: 81001; 87077; 87086; 87186

== ENCOUNTER 2024-02-06 19:38 | Emergency (ER) | payer OTHER ==
[~2024-02-06] VITALS: Ht 157.5 cm; Wt 88.0 kg
[2024-02-06 19:39] VITALS: BP 132/68; PULSE 90; RESP 20
== END 2024-02-06 20:36 | disposition home or self-care (01) ==
LOC: EDH 19:38
DX: Z46.6 Encounter for fitting and adjustment of urinary device (principal); I10 Essential (primary) hypertension; E78.00 Pure hypercholesterolemia, unspecified; Z79.82 Long term (current) use of aspirin; Z79.84 Long term (current) use of oral hypoglycemic drugs; Z79.899 Other long term (current) drug therapy; Z98.890 Other specified postprocedural states
CPT/HCPCS: 99282

== ENCOUNTER 2024-03-22 21:39 | Emergency (ER) | payer OTHER ==
[~2024-03-22] VITALS: Ht 177.8 cm; Wt 86.2 kg
[~2024-03-22 21:39] MED LIST changes: +CEFD300C3 PO; +METO-391 PO; +SPIR25TA6 PO
[2024-03-22 23:41] LABS: APPEARANCE,URINE CLEAR (CLEAR); BILIRUBIN,URINE NEGATIVE (NEGATIVE); COLOR,URINE COLORLESS (YELLOW); GLUCOSE, URINE (UA) NEGATIVE (NEGATIVE); KETONES,URINE NEGATIVE (NEGATIVE); LEUKOCYTE ESTERASE ,URINE 25 Leu/uL (NEGATIVE); NITRATE,URINE NEGATIVE (NEGATIVE); OCCULT BLOOD,URINE LARGE (NEGATIVE); PH,URINE 5.5 (5.0-8.0); PROTEIN,URINE NEGATIVE (NEGATIVE); UROBILINOGEN,URINE 0.2 mg/dL (0.2-1.0)
[2024-03-22 23:47] LABS: ADD UA MICROSCOPIC YES; BACTERIA,URINE RARE /HPF (None Seen); MUCUS,URINE RARE LPF (None Seen); RBC,URINE TNTC /HPF (0-1)
[2024-03-23 00:17] VITALS: BP 122/70; PULSE 62; RESP 18; O2SAT 99
== END 2024-03-23 00:20 | disposition home or self-care (01) ==
LOC: EDH 21:39
DX: R33.9 Retention of urine, unspecified (principal); J44.9 Chronic obstructive pulmonary disease, unspecified; E78.00 Pure hypercholesterolemia, unspecified; I10 Essential (primary) hypertension; G20.A1 Parkinson's disease without dyskinesia, without mention of fluctuations; F17.200 Nicotine dependence, unspecified, uncomplicated; Z79.2 Long term (current) use of antibiotics; Z79.899 Other long term (current) drug therapy; Z79.82 Long term (current) use of aspirin; Z90.49 Acquired absence of other specified parts of digestive tract
CPT/HCPCS: 51702; 51798; 81001

== ENCOUNTER 2024-04-20 15:45 | Emergency (ER) | payer OTHER ==
[~2024-04-20] VITALS: Ht 177.8 cm; Wt 81.6 kg
[~2024-04-20 15:45] MED LIST changes: -METO-391 PO
[2024-04-20 16:52] VITALS: BP 120/78; PULSE 68; RESP 20; TEMP 97.9; O2SAT 97
== END 2024-04-20 16:55 | disposition home or self-care (01) ==
LOC: EDH 15:45
DX: T83.038A Leakage of other urinary catheter, initial encounter (principal); I25.10 Atherosclerotic heart disease of native coronary artery without angina pectoris; J44.9 Chronic obstructive pulmonary disease, unspecified; G20.A1 Parkinson's disease without dyskinesia, without mention of fluctuations; F17.200 Nicotine dependence, unspecified, uncomplicated; Z79.02 Long term (current) use of antithrombotics/antiplatelets; Z79.82 Long term (current) use of aspirin; Z79.899 Other long term (current) drug therapy; Z90.49 Acquired absence of other specified parts of digestive tract; Y82.9 Unspecified medical devices associated with adverse incidents; Y92.89 Other specified places as the place of occurrence of the external cause
CPT/HCPCS: 99282

== ENCOUNTER 2024-05-10 14:54 | Emergency (ER) | payer OTHER ==
[~2024-05-10] VITALS: Ht 177.8 cm; Wt 90.7 kg
[~2024-05-10 14:54] MED LIST changes: +PANT40TA55 PO; -ROSU20TA73 PO; +ROSU20TA98 PO
[2024-05-10 16:29] LABS: APPEARANCE,URINE CLOUDY (CLEAR); BILIRUBIN,URINE NEGATIVE (NEGATIVE); COLOR,URINE LIGHT-YELLOW (YELLOW); GLUCOSE, URINE (UA) NEGATIVE (NEGATIVE); KETONES,URINE NEGATIVE (NEGATIVE); LEUKOCYTE ESTERASE ,URINE 500 Leu/uL (NEGATIVE); NITRATE,URINE NEGATIVE (NEGATIVE); OCCULT BLOOD,URINE MODERATE (NEGATIVE); PH,URINE 6.5 (5.0-8.0); PROTEIN,URINE NEGATIVE (NEGATIVE); UROBILINOGEN,URINE 0.2 mg/dL (0.2-1.0)
[2024-05-10 16:31] LABS: ADD UA MICROSCOPIC YES
[2024-05-10 16:38] LABS: BACTERIA,URINE FEW /HPF (None Seen); WBC CLUMP FEW /HPF (0-1); WBC,URINE 51-100 /HPF (0-1)
[2024-05-10] MEDS ORDERED: CEPH500B PO (16:46)
[2024-05-10] MEDS: cefTRIAXone 1G VIAL IM ONE (17:04)
[2024-05-10 17:16] VITALS: BP 131/79; PULSE 60; RESP 20; TEMP 98.4; O2SAT 99
== END 2024-05-10 17:17 | disposition home or self-care (01) ==
LOC: EDH 14:54
DX: T83.9XXA Unspecified complication of genitourinary prosthetic device, implant and graft, initial encounter (principal); E78.00 Pure hypercholesterolemia, unspecified; I10 Essential (primary) hypertension; J44.9 Chronic obstructive pulmonary disease, unspecified; F17.200 Nicotine dependence, unspecified, uncomplicated; Z79.02 Long term (current) use of antithrombotics/antiplatelets; Z79.82 Long term (current) use of aspirin; Z79.899 Other long term (current) drug therapy; Z95.5 Presence of coronary angioplasty implant and graft; Y84.9 Medical procedure, unspecified as the cause of abnormal reaction of the patient, or of later complication, without mention of misadventure at the time of the procedure; Y92.9 Unspecified place or not applicable
CPT/HCPCS: 99284; 87086 ×3; 87186 ×2; 81001; 51702; 96372; J0696

== ENCOUNTER → 2024-05-18 | Outpatient (CLI) | payer OTHER ==
[~2024-05-18] MED LIST changes: +CEPH500B PO
== END | disposition home or self-care (01) ==
LOC: SHCH 14:20
PROVIDERS: ATTEND Internal Medicine Cardiovascular Disease
DX: I73.9 Peripheral vascular disease, unspecified (principal); I87.2 Venous insufficiency (chronic) (peripheral)
CPT/HCPCS: 93970

== ENCOUNTER 2024-05-31 11:08 | Emergency (ER) | payer OTHER ==
[~2024-05-31] VITALS: Ht 177.8 cm; Wt 90.7 kg
[2024-05-31 11:54] VITALS: BP 155/69; PULSE 70; RESP 16; TEMP 98.6; O2SAT 100
== END 2024-05-31 12:51 | disposition home or self-care (01) ==
LOC: EDH 11:08
DX: T83.038A Leakage of other urinary catheter, initial encounter (principal); E78.00 Pure hypercholesterolemia, unspecified; I10 Essential (primary) hypertension; J44.9 Chronic obstructive pulmonary disease, unspecified; G20.A1 Parkinson's disease without dyskinesia, without mention of fluctuations; F17.200 Nicotine dependence, unspecified, uncomplicated; Z79.02 Long term (current) use of antithrombotics/antiplatelets; Z79.82 Long term (current) use of aspirin; Z79.899 Other long term (current) drug therapy; Z95.5 Presence of coronary angioplasty implant and graft; Z98.890 Other specified postprocedural states; Y84.6 Urinary catheterization as the cause of abnormal reaction of the patient, or of later complication, without mention of misadventure at the time of the procedure
CPT/HCPCS: 99282

== ENCOUNTER 2024-06-01 10:48 | Emergency (ER) | payer OTHER ==
[~2024-06-01] VITALS: Ht 177.8 cm; Wt 90.7 kg
[2024-06-01 12:00] VITALS: BP 144/71; PULSE 71; RESP 20; TEMP 98.6; O2SAT 100
== END 2024-06-01 12:18 | disposition home or self-care (01) ==
LOC: EDH 10:48
DX: T83.098A Other mechanical complication of other urinary catheter, initial encounter (principal); J44.9 Chronic obstructive pulmonary disease, unspecified; G20.A1 Parkinson's disease without dyskinesia, without mention of fluctuations; F17.200 Nicotine dependence, unspecified, uncomplicated; Z79.02 Long term (current) use of antithrombotics/antiplatelets; Z79.82 Long term (current) use of aspirin; Z79.899 Other long term (current) drug therapy; Z90.49 Acquired absence of other specified parts of digestive tract; Z95.5 Presence of coronary angioplasty implant and graft; Y84.6 Urinary catheterization as the cause of abnormal reaction of the patient, or of later complication, without mention of misadventure at the time of the procedure
CPT/HCPCS: 99282

== ENCOUNTER → 2024-06-03 | Outpatient (CLI) | payer OTHER ==
[~2024-06-03] MED LIST changes: +HYDR12.54 PO; +OXYC20TA41 PO
[2024-06-03 12:58] LABS: ALBUMIN 3.6 g/dL (3.5-5.0); BILIRUBIN,TOTAL 0.9 mg/dL (0.2-1.0); CREATININE 1.8 mg/dL (0.5-1.3); POTASSIUM 4.4 mmol/L (3.5-5.1)
== END | disposition home or self-care (01) ==
LOC: LAB 09:49
PROVIDERS: ATTEND Internal Medicine Cardiovascular Disease
DX: I73.9 Peripheral vascular disease, unspecified (principal)
CPT/HCPCS: 36415; 80053

== ENCOUNTER 2024-08-21 10:54 | Emergency (ER) | payer OTHER ==
[~2024-08-21] VITALS: Ht 177.8 cm; Wt 90.7 kg
[~2024-08-21 10:54] MED LIST changes: -CEFD300C3 PO; -CEPH500B PO; -CLOP75TA32 PO; -Docusate Sodium 100 Mg Cap PO; -LANS15CA17 PO; -PANT40TA55 PO
[2024-08-21] MEDS: TRIAMCINOLONE ACETONIDE 40 MG/ML 1ML VIAL IM ONE (11:27)
[2024-08-21] MEDS: ORPHENADRINE 60MG/2ML IM ONE (11:27)
--- NOTE | 2024-08-21 11:49 | HMCIMG ---
CT HEAD/BRAIN W/O CONTRAST HISTORY: Status post fall COMPARISON: None TECHNIQUE: Multiple sequential axial images of the head were obtained from the base of the skull through vertex. Patient was not given contrast through intravenous route. FINDINGS: The ventricles and extraventricular CSF spaces are dilated consistent with cerebral atrophy. Nonspecific white matter changes seen. There is no midline shift, mass effect or herniation. No acute intracranial bleed is seen. There are bilateral ethmoid and sphenoid sinusitis with mucoperiosteal thickening. IMPRESSION: 1. No acute intracranial bleed is seen. 2. Atrophy with white matter changes. CT was performed with one or more following dose reduction techniques: automated exposure control, adjustment of the mA and kv according to patient's size, or use of a iterative reconstruction technique.
--- NOTE | 2024-08-21 12:17 | HMCIMG ---
LUMBAR SPINE 2-3VWS HISTORY: Status post fall COMPARISON: None FINDINGS: 3 images of lumbar spine were obtained. There is straightening of normal lordotic curvature which may be related to muscle spasm or positioning. No loss of vertebral height is seen. No fracture or dislocation is seen. Degenerative changes are seen. Large amount of fecal material is seen in the colon may be related to constipation. Vascular calcifications are seen. Disc space narrowings are seen at L4-5 and L5-S1 levels. IMPRESSION: 1. No fracture is seen. DJD.
--- NOTE | 2024-08-21 12:20 | HMCIMG ---
ELBOW COMP 3+VWS LT HISTORY: Status post fall COMPARISON: None TECHNIQUE: 3 images of left elbow were obtained. FINDINGS: There is no acute displaced fracture or dislocation. There is soft tissue swelling. Soft tissue emphysema is seen. Degenerative changes are seen. IMPRESSION: 1. Findings as described above.
[2024-08-21] MEDS ORDERED: CLIN-141 PO (12:35)
[2024-08-21] MEDS ORDERED: ACET-66 PO (12:35)
--- NOTE | 2024-08-21 12:36 | ERN ---
General Chief Complaint: Mechanical Fall Stated Complaint: FALL, PAIN IN ELBOW AND HEAD Time Seen by MD: 11:00 Source: patient History of Present Illness Initial Comments PATIENT IS A 73-YEAR-OLD MALE COMING IN AFTER HE STATES HE HAD A MECHANICAL FALL. HE STATES HE LOST HIS BALANCE WHILE AMBULATING AND FELL DOWN IN HIS LEFT ELBOW HE ALSO HIT HIMSELF IN THE HEAD. HE STATES HE WAS GOT A CHRONIC HISTORY OF BACK PAIN AND USES A WALKER ON AND OFF FOR AMBULATION. Allergies: Coded Allergies: No Known Drug Allergies (Unverified Allergy, Unknown, 06/06/21) Home Meds Active Scripts Tamsulosin HCl (Flomax) 0.4 Mg Cap.er.24h, 0.4 MG PO DAILY for 30 Days, #30 CAPSULE. Prov:FARHEEN HEARD IV, MD 01/15/24 Nicotine (Nicotine Patch) 21 Mg/24 Hour Patch.td24, 21 MG TD DAILY for 30 Days, #30 PATCH Prov:FARHEEN HEARD IV, MD 01/15/24 Metoprolol Tartrate (Lopressor 50Mg Tab) 50 Mg Tab, 50 MG PO BID for 60 Days, #30 TAB Prov:FARHEEN HEARD IV, MD 01/15/24 Reported Medications Hydrochlorothiazide (Hydrochlorothiazide) 12.5 Mg Tablet, 1 TAB PO AD for 30 Days, #30 TAB 0 Refills EVERY Friday AND Friday06/04/24 Oxycodone HCl (Oxycodone HCl) 20 Mg Tablet, 1 TAB PO QID PRN for pain for 30 Days, #120 TAB 0 Refills 06/04/24 Spironolactone (Spironolactone) 25 Mg Tablet, 25 MG PO DAILY, TAB 03/20/24 Ferrous Sulfate (Feosol) 325 Mg (65 Mg Iron) Tablet, 325 MG PO DAILY, TAB 01/10/24 Aspirin (ASPIRIN 81 MG ECTAB) 81 Mg Ectab, 81 MG PO DAILY, TAB.EC 01/10/24 Venlafaxine HCl (Effexor Xr) 150 Mg Cap.er.24h, 150 MG PO DAILY, CAPSULE. 01/10/24 Carbidopa/Levodopa (Carbidopa-Levo 25-100 mg Odt) 1 Each Tab.rapdis, 1 EACH PO TID, TAB 01/29/23 Torsemide (Torsemide) 20 Mg Tablet, 40 MG PO DAILY, TAB 05/15/22 Nitroglycerin (Nitroglycerin) 0.4 Mg Tab.subl, 0.4 MG SL AD, TAB.SL 07/31/21 Losartan Potassium (Losartan Potassium) 100 Mg Tablet, 50 MG PO DAILY, TAB 07/16/21 Aripiprazole (Aripiprazole) 15 Mg Tablet, 15 MG PO DAILY, TAB 07/16/21 Rosuvastatin Calcium (Rosuvastatin Calcium) 20 Mg Tablet, 20 MG PO DAILY, TAB 07/16/21 Past Medical History Past Medical History: COPD, High Cholesterol, Heart Disease, Hypertension Medical History Other: PARKINSON Past Surgical History: Appendectomy Surgical History Other: HEART STENTS Social History Social History: Smokers, Lives with family, Other ROS Dictation CONSTITUTIONAL: NO CHILLS, NO FEVER, NO WEAKNESS, NO DIAPHORESIS, NO MALAISE. HEAD/FACE: NO SIGNS OF TRAUMA. EENT: NO EYE PAIN, NO BLURRED VISION, NO TEARING, NO DOUBLE VISION, NO EAR PAIN, NO EAR DISCHARGE, NO NOSE PAIN, NO NASAL CONGESTION, NO THROAT PAIN, NO THROAT SWELLING, NO MOUTH PAIN. RESPIRATORY: NO COUGH, NO ORTHOPNEA, NO SOB, NO STRIDOR, NO WHEEZING. CARDIOVASCULAR: NO CHEST PAIN, NO EDEMA, NO PALPITATIONS, NO SYNCOPE. GASTROINTESTINAL/ABDOMINAL: NO ABDOMINAL PAIN, NO CONSTIPATION, NO DIARRHEA, NO NAUSEA, NO VOMITING. GENITOURINARY: NO ABNORMAL DISCHARGE, NO DYSURIA, NO FREQUENT URINATION, NO HEMATURIA. NO COMPLAINTS OF PAIN IN THE GENITALS. MUSCULOSKELETAL: NO BACK PAIN, NO GOUT, NO JOINT PAIN, JOINT SWELLING, MUSCLE PAIN, NO MUSCLE STIFFNESS, NO NECK PAIN. INTEGUMENTARY: NO CHANGE IN COLOR, NO CHANGE IN HAIR/NAILS, NO DRYNESS, NO LESION, NO LUMPS, NO RASH. NEUROLOGICAL/PSYCH: NO ANXIETY, NOT DEPRESSED, NO EMOTIONAL PROBLEM, NO HEADACHE, NO NUMBNESS, NO PRE-EXISTING DEFICIT, NO HISTORY OF SEIZURES, NO TREMORS, NO WEAKNESS. HEMATOLOGIC/LYMPHATIC: NOT ANEMIC, NO HISTORY OF BLOOD CLOTS, NO APPARENT BLEEDING, NO BRUISING, GLANDS NOT SWOLLEN. ALL SYSTEMS NEGATIVE, EXCEPT NOTED. Physical Exam Physical Exam Dictation VITAL SIGNS: REVIEWED. GENERAL APPEARANCE: ALERT, ORIENTED X3, NO ACUTE DISTRESS, OBESE. HEAD AND FACE: NON-TRAUMATIC. EYES: PERRL, PINK CONJUNCTIVAS, EYELID NO TRAUMA, ANTERIOR CHAMBER CLEAR. EARS: PINNAS INTACT AND NO SIGNS OF TRAUMA OR ERYTHEMA. EAR CANALS CLEAR AND NO DISCHARGE. TMS NO ERYTHEMA. NOSE: NO DISCHARGE, NO BLEEDING. OROPHARYNX: MOUTH NORMAL, TEETH NO CARIES, TONGUE PINK. PHARYNX CLEAR, NO ERYTHEMA. TONSILS NO EXUDATES, NO ABSCESSES NOTED. MUCOUS MEMBRANE MOIST. NECK: SUPPLE, NON-TENDER, NO THYROMEGALY, NO MASSES, NO JVD, NO BRUITS. BREAST: DEFERRED. CHEST: NO TENDERNESS, NO CREPITUS, NO PARADOXICAL MOVEMENT, NO RETRACTIONS. LUNGS: CLEAR, WELL-VENTILATED, SYMMETRIC, NO RALES, NO WHEEZING, NO RHONCHI, NO STRIDOR, GOOD BREATH SOUNDS BILATERALLY. HEART: REGULAR RATE, REGULAR RHYTHM, NO MURMUR, NO GALLOPS. VASCULAR: NO PERIPHERAL EDEMA. ABDOMEN: SOFT, POSITIVE BOWEL SOUNDS, NONDISTENDED, NO GUARDING, NONTENDER, NO REBOUND, NO MASSES NO HEPATOMEGALY, NO SPLENOMEGALY, NO PIMENTEL'S SIGN, NO HERNIAS. RECTAL: DEFERRED. GENITAL: DEFERRED. NEUROLOGICAL: NORMAL SPEECH, GROSS MOTOR FUNCTION INTACT, GROSS SENSORY FUNCTION INTACT. MUSCULOSKELETAL: NECK NONTENDER, FULL RANGE OF MOTION, BACK NONTENDER, FULL RANGE OF MOTION. EXTREMITIES: NONTENDER, FULL RANGE OF MOTION. LEFT ELBOW PAIN NO SWELLING SKIN: COLOR PINK, DRY, NO TURGOR, NO RASH, NO LACERATIONS, LEFT ELBOW ABRASION, NO CONTUSIONS. LYMPHATICS: DEFERRED. Results Laboratory and Microbiology Labs Reviewed?: Yes EKG/XRAY/US/CT/MRI X-RAY Comment [address] [id number] IMAGING REPORT Signed PATIENT: TYLER VALADEZ MR#: [id number] : 1950 SEX: M AGE: 73 LOCATION: ED ORDER 05 STATUS: [facility] REPORT#: [id number] SERVICE 110 REASON: FALL ORDERING PHYSICIAN: CHENCHO GUSTAFSON MD PROCEDURE: LUMB 2 3VW - LUMBAR SPINE 2-3VWS LUMBAR SPINE 2-3VWS HISTORY: Status post fall COMPARISON: None FINDINGS: 3 images of lumbar spine were obtained. There is straightening of normal lordotic curvature which may be related to muscle spasm or positioning. No loss of vertebral height is seen. No fracture or dislocation is seen. Degenerative changes are seen. Large amount of fecal material is seen in the colon may be related to constipation. Vascular calcifications are seen. Disc space narrowings are seen at L4-5 and L5-S1 levels. IMPRESSION: 1. No fracture is seen. DJD. DICTATED BY: HEIDI MERAZ MD DATE: 08/21/241211 ELECTRONICALLY SIGNED BY: HEIDI MERAZ MD DATE: 08/21/241216 [address] [id number] IMAGING REPORT Signed PATIENT: TYLER VALADEZ MR#: [id number] : 1950 SEX: M AGE: 73 LOCATION: ED ORDER 05 STATUS: [facility] REPORT#: [id number] SERVICE 03 REASON: FALL ORDERING PHYSICIAN: CHENCHO GUSTAFSON MD PROCEDURE: ELB3VW LT - ELBOW COMP 3+VWS LT ELBOW COMP 3+VWS LT HISTORY: Status post fall COMPARISON: None TECHNIQUE: 3 images of left elbow were obtained. FINDINGS: There is no acute displaced fracture or dislocation. There is soft tissue swelling. Soft tissue emphysema is seen. Degenerative changes are seen. IMPRESSION: 1. Findings as described above. DICTATED BY: HEIDI MERAZ MD DATE: 08/21/241214 ELECTRONICALLY SIGNED BY: HEIDI MERAZ MD DATE: 08/21/[address] Scan Comment [facility] [address] [id number] IMAGING REPORT Signed PATIENT: TYLER VALADEZ MR#: [id number] : 1950 SEX: M AGE: 73 LOCATION: ED ORDER 05 STATUS: REG ER REPORT#: [id number] SERVICE 03 REASON: FALL ORDERING PHYSICIAN: CHENCHO GUSTAFSON MD PROCEDURE: HEAD WO - CT HEAD/BRAIN W/O CONTRAST CT HEAD/BRAIN W/O CONTRAST HISTORY: Status post fall COMPARISON: None TECHNIQUE: Multiple sequential axial images of the head were obtained from the base of the skull through vertex. Patient was not given contrast through intravenous route. FINDINGS: The ventricles and extraventricular CSF spaces are dilated consistent with cerebral atrophy. Nonspecific white matter changes seen. There is no midline shift, mass effect or herniation. No acute intracranial bleed is seen. There are bilateral ethmoid and sphenoid sinusitis with mucoperiosteal thickening. IMPRESSION: 1. No acute intracranial bleed is seen. 2. Atrophy with white matter changes. CT was performed with one or more following dose reduction techniques: automated exposure control, adjustment of the mA and kv according to patient's size, or use of a iterative reconstruction technique. DICTATED BY: HEIDI MERAZ MD DATE: 08/21/24 1143 ELECTRONICALLY SIGNED BY: HEIDI MERAZ MD DATE: 08/21/24 1149 [facility] MDM: DIFFERENTIAL DIAGNOSIS: FALL, ELBOW CONTUSION, ELBOW ABRASION, CHRONIC LUMBAR PAIN PATIENT IS A 73-YEAR-OLD MALE COMING IN TO BE EVALUATED AFTER HE HAD A FALL. HE STATES THE FALL HAPPENED A COUPLE OF DAYS AGO AFTER A OFF BALANCE EPISODE. PATIENT STATES HE DOES USE A WALKER FOR AMBULATION. HE STATES HE LOST HIS BALANCE FELL IN HIS LEFT ELBOW. HE WAS EVALUATED ANOTHER HOSPITAL BUT DID NOT STAY TO BE EVALUATED WITH IMAGING. X-RAY AND CT DID NOT DISCLOSE ACUTE FINDINGS. MILD FAT PAD ON THE LEFT ELBOW SEEN. PATIENT WILL BE DISCHARGED WITH A SLING I ADVISED HIM APPROPRIATE FOLLOW UP WITH PCP IN 1-2 DAYS. ED Course Orders Procedure Category Date Status Time Ct Head/Brain W/O CT 08/21/24 Resulted Contrast 11:04 Elbow Comp 3+Vws Lt RAD 08/21/24 Resulted 11:04 Lumbar Spine 2-3vws RAD 08/21/24 Resulted 11:04 Orphenadrine Citrate PHA 08/21/24 Complete (Norflex) 11:30 Triamcinolone Acet PHA 08/21/24 Complete 40mg/Ml 1ml (Kenalog 11:30 Current Medications Medications (Trade) Dose Ordered Sig/Jay Route PRN Reason Start Time Stop Time Status Last Admin Dose Admin Orphenadrine Citrate (Norflex) 60 mg ONCE ONCE IM 08/21/24 11:30 08/21/24 11:31 DC 08/21/24 11:27 Triamcinolone Acetonide (Kenalog 40) 40 mg ONCE ONCE IM 08/21/24 11:30 08/21/24 11:31 DC 08/21/24 11:27 Vital Signs Date Time Temp Pulse Resp B/P (MAP) Pulse Ox O2 Delivery O2 Flow Rate FiO2 08/21/24 11:19 98.4 75 18 164/74 98 Room Air* 0 21 08/21/24 11:02 98.4 75 18 164/74 98 Room Air DX & DISP Disposition: Discharge Departure Impression: Primary Impression: Chronic pain syndrome Additional Impression: Left elbow contusion Condition: Stable Scripts Acetaminophen (Tylenol) 500 Mg Tab 1 TAB PO Q6HPRN PRN for pain or fever for 5 Days, #30 TAB 0 Refills Prov: CHENCHO GUSTAFSON MD 08/21/24 Clindamycin HCl (Clindamycin HCl) 300 Mg Capsule 1 CAP PO TID for 10 Days, #30 CAP 0 Refills Prov: CHENCHO GUSTAFSON MD 08/21/24 Additional Instructions: FOLLOW-UP WITH PRIMARY CARE PROVIDER IN 1 TO 2 DAYS. TAKE MEDICATIONS DIRECTED HERE IN THE EMERGENCY ROOM. OKAY TO CONTINUE HOME MEDICATIONS UNLESS OTHERWISE DISCUSSED DURING YOUR VISIT IN THE EMERGENCY ROOM TODAY. RETURN TO YOUR NEAREST EMERGENCY ROOM IF SYMPTOMS WORSEN OR IF THERE IS NO IMPROVEMENT. CALL 911 IF YOU NEED IMMEDIATE ASSISTANCE. TAKE TYLENOL [id number] NEEDED AND IF NO CONTRAINDICATIONS ARE PRESENT. INCREASE ORAL HYDRATION. A WOUND CULTURE OR URINE CULTURE WAS ORDERED HERE IN THE EMERGENCY ROOM DEPARTMENT PLEASE FOLLOW-UP WITH PRIMARY CARE PROVIDER AND ADVISE THEM TO GET REPEAT PORTS FROM OUR FACILITY. IF YOU HAD ANY PRECIOUS WRAP/SPLINTS THAT WERE APPLIED HERE, PLEASE DO NOT REMOVE THEM UNTIL YOU SEE YOUR PRIMARY CARE OR SPECIALTY. REFERRALS: Referrals: VANESSA SMITH MD (PCP) Time of Disposition: 12:34 CHENCHO GUSTAFSON MD Aug 21, 2024 12:36
[2024-08-21 12:38] VITALS: BP 157/70; PULSE 71; RESP 16; TEMP 98.1; O2SAT 97
--- NOTE | 2024-08-21 12:42 | NUR ---
SLING TO LT ARM APPLIED, PT TOLERATED WELL
== END 2024-08-21 12:47 | disposition home or self-care (01) ==
LOC: EDH 10:54
DX: S50.02XA Contusion of left elbow, initial encounter (principal); G89.4 Chronic pain syndrome; J44.9 Chronic obstructive pulmonary disease, unspecified; E78.00 Pure hypercholesterolemia, unspecified; F17.200 Nicotine dependence, unspecified, uncomplicated; I10 Essential (primary) hypertension; Z79.82 Long term (current) use of aspirin; Z79.899 Other long term (current) drug therapy; Z90.49 Acquired absence of other specified parts of digestive tract; Z95.5 Presence of coronary angioplasty implant and graft; W18.39XA Other fall on same level, initial encounter; Y93.89 Activity, other specified; Y92.89 Other specified places as the place of occurrence of the external cause; Y99.8 Other external cause status
CPT/HCPCS: 99285; 70450; 73080; 72100; 96372 ×2; J3301; J2360

== ENCOUNTER 2024-10-07 11:34 | Emergency (ER) | payer OTHER ==
[~2024-10-07] VITALS: Ht 177.8 cm; Wt 90.7 kg
[~2024-10-07 11:34] MED LIST changes: +ACET-66 PO; +CLIN-141 PO
[2024-10-07] MEDS ORDERED: METH4TAB3 PO (11:49)
--- NOTE | 2024-10-07 11:50 | ERN ---
ED Note History of Present Illness Stated Complaint: FLANK PAIN Chief Complaint: Back Pain or Injury Time Seen by MD: 11:42 Dictation: PATIENT IS A 73-YEAR-OLD RETIRED HERE WITH COMPLAINTS OF ACUTE EXACERBATION OF LOW BACK PAIN HE HAS HAD FOR SEVERAL MONTHS. NO LOSS OF BOWEL OR BLADDER FUNCTION NO RADICULOPATHY. HE STATES HE IS PENDING SURGERY BY /NEUROSURGERY AT [facility] NEXT MONTH. HE STATES HE HAS OXYCODONE AT HOME BY HIS PRIMARY CARE DOCTOR IN HIS [facility]RIMP HEADER AND IS HERE FOR INCREASED PAIN. Allergies: Coded Allergies: No Known Drug Allergies (Unverified Allergy, Unknown, 06/06/21) Home Meds Active Scripts Methylprednisolone (Medrol) 4 Mg Tab.ds.pk, 1 TAB PO AD for 6 Days, #21 TAB 0 Refills 6 on day 1 then reduce by one tablet daily until gone Prov:ЕЛЕНА CHIU NP 10/07/24 Acetaminophen (Tylenol) 500 Mg Tab, 1 TAB PO Q6HPRN PRN for pain or fever for 5 Days, #30 TAB 0 Refills Prov:CHENCHO GUSTAFSON MD 08/21/24 Clindamycin HCl (Clindamycin HCl) 300 Mg Capsule, 1 CAP PO TID for 10 Days, #30 CAP 0 Refills Prov:CHENCHO GUSTAFSON MD 08/21/24 Tamsulosin HCl (Flomax) 0.4 Mg Cap.er.24h, 0.4 MG PO DAILY for 30 Days, #30 CAPSULE. Prov:FARHEEN HEARD IV, MD 01/15/24 Nicotine (Nicotine Patch) 21 Mg/24 Hour Patch.td24, 21 MG TD DAILY for 30 Days, #30 PATCH Prov:FARHEEN HEARD IV, MD 01/15/24 Metoprolol Tartrate (Lopressor 50Mg Tab) 50 Mg Tab, 50 MG PO BID for 60 Days, #30 TAB Prov:FARHEEN HEARD IV, MD 01/15/24 Reported Medications Hydrochlorothiazide (Hydrochlorothiazide) 12.5 Mg Tablet, 1 TAB PO AD for 30 Days, #30 TAB 0 Refills EVERY Friday AND Friday06/04/24 Oxycodone HCl (Oxycodone HCl) 20 Mg Tablet, 1 TAB PO QID PRN for pain for 30 Days, #120 TAB 0 Refills 06/04/24 Spironolactone (Spironolactone) 25 Mg Tablet, 25 MG PO DAILY, TAB 03/20/24 Ferrous Sulfate (Feosol) 325 Mg (65 Mg Iron) Tablet, 325 MG PO DAILY, TAB 01/10/24 Aspirin (ASPIRIN 81 MG ECTAB) 81 Mg Ectab, 81 MG PO DAILY, TAB.EC 01/10/24 Venlafaxine HCl (Effexor Xr) 150 Mg Cap.er.24h, 150 MG PO DAILY, CAPSULE.DR 01/10/24 Carbidopa/Levodopa (Carbidopa-Levo 25-100 mg Odt) 1 Each Tab.rapdis, 1 EACH PO TID, TAB 01/29/23 Torsemide (Torsemide) 20 Mg Tablet, 40 MG PO DAILY, TAB 05/15/22 Nitroglycerin (Nitroglycerin) 0.4 Mg Tab.subl, 0.4 MG SL AD, TAB.SL 07/31/21 Losartan Potassium (Losartan Potassium) 100 Mg Tablet, 50 MG PO DAILY, TAB 07/16/21 Aripiprazole (Aripiprazole) 15 Mg Tablet, 15 MG PO DAILY, TAB 07/16/21 Rosuvastatin Calcium (Rosuvastatin Calcium) 20 Mg Tablet, 20 MG PO DAILY, TAB 07/16/21 Past Medical History Past Medical History: COPD, High Cholesterol, Heart Disease, Hypertension Additional Past Medical Hx: PARKINSON Surgical History: Appendectomy Surgical History Other: HEART STENTS Social History: Smokers, Lives with family, Other RN Note Reviewed/Agreed w/PFSH: Yes Review of System Dictation CONSTITUTIONAL: NEGATIVE EXCEPT FOR HPI HEAD/FACE: NEGATIVE EXCEPT FOR HPI EENT: NEGATIVE EXCEPT FOR HPI RESPIRATORY: NEGATIVE EXCEPT FOR HPI GASTROINTESTINAL/ABDOMINAL: NEGATIVE EXCEPT FOR HPI GENITOURINARY: NEGATIVE EXCEPT FOR HPI MUSCULOSKELETAL: NEGATIVE EXCEPT FOR HPI DIFFUSE LUMBAR PAIN INTEGUMENTARY: NEGATIVE EXCEPT FOR HPI NEUROLOGICAL/PSYCH: NEGATIVE EXCEPT FOR HPI HEMATOLOGIC/LYMPHATIC: NEGATIVE EXCEPT FOR HPI ALL SYSTEMS NEGATIVE, EXCEPT NOTED ABOVE. 13 POINT REVIEW OF SYSTEMS ASSESSED AND ALL NEGATIVE EXCEPT FOR ABOVE. Initial Vital Sign VS Vital Signs Date Time Temp Pulse Resp B/P (MAP) Pulse Ox O2 Delivery O2 Flow Rate FiO2 10/07/24 11:39 97.5 67 16 154/62 98 Room Air 10/07/24 12:29 0 21 Physical Exam Dictation VITAL SIGNS REVIEWED GENERAL APPEARANCE: ALERT, ORIENTED X 3, MODERATE ACUTE DISTRESS, WELL DEVELOPED, NOURISHED. HEAD AND FACE: NON-TRAUMATIC. EYES: PERRL, PINK CONJUNCTIVAS, EYELID NO TRAUMA, ANTERIOR CHAMBER WITH ARCUS SENILIS. EARS: PINNAS INTACT AND NO SIGNS OF TRAUMA OR ERYTHEMA EAR CANALS CLEAR AND NO DISCHARGE TM NO ERYTHEMA NOSE: NO DISCHARGE, NO BLEEDING. OROPHARYNX: MOUTH NORMAL, TONGUE PINK, PHARYNX CLEAR,NO ERYTHEMA, TONSILS NO EXUDATES, NO ABSCESSES NOTED, MUCOUS MEMBRANE MOIST NECK: SUPPLE, NON-TENDER, NO THYROMEGALY, NO MASSES, NO JVD, NO BRUITS BREAST:DEFERRED CHEST:NO TENDERNESS, NO CREPITUS, NO PARADOXICAL MOVEMENT, NO RETRACTIONS LUNGS:CLEAR, WELL-VENTILATED, SYMMETRIC, NO RALES, NO WHEEZING, NO RHONCHI, NO STRIDOR, GOOD BREATH SOUNDS BILATERALLY HEART: REGULAR RATE, REGULAR RHYTHM, NO MURMUR, NO GALLOPS VASCULAR: NO PERIPHERAL EDEMA, ABDOMEN: SOFT, POSITIVE BOWEL SOUNDS, NONDISTENDED, NO GUARDING, NONTENDER, NO REBOUND, NO MASSES NO HEPATOMEGALY, NO SPLENOMEGALY, NO PIMENTEL'S SIGN, NO HERNIAS. RECTAL: DEFERRED GENITAL: DEFERRED NEUROLOGICAL: NORMAL SPEECH, MOTOR FUNCTION INTACT, SENSORY FUNCTION INTACT MUSCULOSKELETAL: NECK NONTENDER, FULL RANGE OF MOTION, DIFFUSE LUMBOSACRAL TENDERNESS WITHOUT STEP-OFF. NEGATIVE STRAIGHT LEG RAISE BILATERALLY 10 DEGREE EXTREMITIES: NONTENDER, FULL RANGE OF MOTION SKIN: COLOR PINK, DRY, NO TURGOR, NO RASH, NO LACERATIONS, NO ABRASIONS, NO C ONTUSIONS. LYMPHATIC: DEFERRED Results (Laboratory/Radiology) Labs Reviewed?: Yes ED Course ED Course Orders Procedure Category Date Status Time Cyclobenzaprine Hcl PHA 10/07/24 Complete (Cyclobenzaprine Hcl 12:00 Ibuprofen 800 Mg Tab PHA 10/07/24 Complete (Motrin) 12:00 Morphine 2mg Syg PHA 10/07/24 Complete (Morphine 2mg Syg) 12:00 Current Medications Medications (Trade) Dose Ordered Sig/Jay Route PRN Reason Start Time Stop Time Status Last Admin Dose Admin Cyclobenzaprine HCl (Cyclobenzaprine HCl) 10 mg ONCE ONCE PO 10/07/24 12:00 10/07/24 12:01 DC 10/07/24 12:13 Ibuprofen (moTRIN) 800 mg ONCE ONCE PO 10/07/24 12:00 10/07/24 12:01 DC 10/07/24 12:13 Morphine Sulfate (morPHINE 2MG SYG) 2 mg ONCE ONCE IM 10/07/24 12:00 10/07/24 12:01 DC 10/07/24 12:14 Vital Signs Date Time Temp Pulse Resp B/P (MAP) Pulse Ox O2 Delivery O2 Flow Rate FiO2 10/07/24 12:29 98.2 77 20 144/76 97 Room Air* 0 21 10/07/24 11:39 97.5 67 16 154/62 98 Room Air 1145/PATIENT MADE AWARE THAT I CAN REDUCE HIS PAIN HOWEVER NOT BE ELIMINATED. HE IS SEEING A SHRIMP HEADER AND HAS A NEUROSURGEON AT [facility]. I INFORMED HIM I WOULD TRY TO REDUCE HIS PAIN AT THIS POINT AND HAVE HIM FOLLOW UP WITH HIS DOCTOR OR HIS SHRIMP HEADER. ADDITION I ADVISED HIM TO CONTINUE HIS OXYCODONE AND WE WILL SEND HIM HOME WITH MEDROL DOSEPAK. Medical Decision Making MDM MEDICAL DISCHARGE MAKING BASED ON EMPIRIC TREATMENT OF ACUTE EXACERBATION CHRONIC LOW BACK PAIN. PATIENT IS ON OXYCODONE AT HOME, AND HAS A SHRIMP HEADER. HE WAS ADVISED TO FOLLOW UP WITH HIS PRIMARY CARE DOCTOR TODAY FOR FURTHER EVALUATION AND TREATMENT OR GO GO BACK TO HIS PAIN MANAGEMENT SPOKE DX & DISP Disposition: Discharge Departure Impression: Primary Impression: Acute exacerbation of chronic low back pain Condition: Stable Scripts Methylprednisolone (Medrol) 4 Mg Tab.ds.pk 1 TAB PO AD for 6 Days, #21 TAB 0 Refills 6 on day 1 then reduce by one tablet daily until gone Prov: ЕЛЕНА CHIU [employer]ENT[employer] SELECTOR 10/07/24 Additional Instructions: FOLLOW-UP WITH PRIMARY CARE PROVIDER IN 1 TO 2 DAYS. TAKE MEDICATIONS DIRECTED HERE IN THE EMERGENCY ROOM. OKAY TO CONTINUE HOME MEDICATIONS UNLESS OTHERWISE DISCUSSED DURING YOUR VISIT IN THE EMERGENCY ROOM TODAY. RETURN TO YOUR NEAREST EMERGENCY ROOM IF SYMPTOMS WORSEN OR IF THERE IS NO IMPROVEMENT. CALL 911 IF YOU NEED IMMEDIATE ASSISTANCE. TAKE TYLENOL OR MOTRIN [id number] NEEDED AND IF NO CONTRAINDICATIONS ARE PRESENT. INCREASE ORAL HYDRATION. A WOUND CULTURE OR URINE CULTURE WAS ORDERED HERE IN THE EMERGENCY ROOM DEPARTMENT PLEASE FOLLOW-UP WITH PRIMARY CARE PROVIDER AND ADVISE THEM TO GET REPEAT PORTS FROM OUR FACILITY. IF YOU HAD ANY PRECIOUS WRAP/SPLINTS THAT WERE APPLIED HERE, PLEASE DO NOT REMOVE THEM UNTIL YOU SEE YOUR PRIMARY CARE OR SPECIALTY. CONTINUE YOUR OXYCODONE AT HOME FROM YOUR PRIMARY CARE DOCTOR AND SHRIMP HEADER. SEE THEM THIS AFTERNOON OR TOMORROW FOR FURTHER EVALUA TION AND TREATMENT. TAKE MEDROL DOSEPAK DIRECTED UNTIL GONE. SUGGEST WARM COMPRESSES TO PAIN THREE TO 4 TIMES A DAY. Referrals: VANESSA SMITH MD (PCP) Time of Disposition: 11:48 I have reviewed the case, and I agree with, Diagnosis and Plan ЕЛЕНА CHIU NP Oct 07, 2024 11:50 ADALID DHILLON DO Oct 07, 2024 14:56
[2024-10-07] MEDS: CYCLOBENZAPRINE HCL 10 MG TABLET PO ONE (12:13)
[2024-10-07] MEDS: ibuPROFEN 800 MG TAB PO ONE (12:13)
[2024-10-07] MEDS: morPHINE 2 MG SYG IM ONE (12:14)
[2024-10-07 12:29] VITALS: BP 144/76; PULSE 77; RESP 20; TEMP 98.3; O2SAT 97
--- NOTE | 2024-10-07 12:38 | NUR ---
PT D/C HOME, STABLE AAOX4 , MEDICATED FOR PAIN, PT WILL START NEW MEDICINE TODAY [facility] HOME, NO IV ON THIS VISIT.
== END 2024-10-07 12:39 | disposition home or self-care (01) ==
LOC: EDH 11:34
DX: G89.29 Other chronic pain (principal); M54.50 Low back pain, unspecified; E78.00 Pure hypercholesterolemia, unspecified; F17.200 Nicotine dependence, unspecified, uncomplicated; I10 Essential (primary) hypertension; J44.9 Chronic obstructive pulmonary disease, unspecified; Z79.82 Long term (current) use of aspirin; Z79.899 Other long term (current) drug therapy; Z90.49 Acquired absence of other specified parts of digestive tract; Z95.5 Presence of coronary angioplasty implant and graft
CPT/HCPCS: 99283; 96372; J2270

== ENCOUNTER 2024-10-11 10:32 | Emergency (ER) | payer OTHER ==
[~2024-10-11] VITALS: Ht 177.8 cm; Wt 90.7 kg
[~2024-10-11 10:32] MED LIST changes: +METH4TAB3 PO
[2024-10-11 10:38] VITALS: TEMP 97.8
[2024-10-11] MEDS: ketOROlac 15MG/ML VIAL (15MG/ML) IV ONE (11:04)
[2024-10-11] MEDS: morPHINE 4 MG SYG IVP ONE (11:04)
[2024-10-11] MEDS: LIDOCAINE 4% ADH..PATCH TP ONE (11:05)
--- NOTE | 2024-10-11 11:13 | ERN ---
ED Note History of Present Illness Stated Complaint: BACK PAIN Chief Complaint: Low Back Pain/Injury Time Seen by MD: 10:56 Time Seen by Midlevel: 11:00 Dictation: Mr Lima is a 73 year old gentleman whit history of chronic low back pain, urinary retention/BPH, concerns, hypertension, and hyperlipidemia who presented to the emergency department this morning for evaluation of back pain. He states that chronic low back pain has been worse over the past 2-3 days. He denies having fall/trauma. He has had no loss of bowel or focal weakness/paresthesia. He states that he has been taking his prescription pain medication (Wren) but pain seems to worsen. Last imaging on 08/21/24 lumbar x-ray noted disc space narrowing at L4-L5 and L5-S1; DJD. He is pending neurosurgery evaluation with Dr. Beauchamp to discuss surgical options. He denies having fever, chills, shortn ess of breath, cough, chest pain, palpitations, edema, abdominal pain, nausea, vomiting or diarrhea, dysuria, headache, dizziness. He was last seen here on 10/07 for same and treated with steroid. Allergies: Coded Allergies: No Known Drug Allergies (Unverified Allergy, Unknown, 06/06/21) Home Meds Active Scripts Methylprednisolone (Medrol) 4 Mg Tab.ds.pk, 1 TAB PO AD for 6 Days, #21 TAB 0 Refills 6 on day 1 then reduce by one tablet daily until gone Prov:ЕЛЕНА CHIU NP 10/07/24 Acetaminophen (Tylenol) 500 Mg Tab, 1 TAB PO Q6HPRN PRN for pain or fever for 5 Days, #30 TAB 0 Refills Prov:CHENCHO GUSTAFSON MD 08/21/24 Clindamycin HCl (Clindamycin HCl) 300 Mg Capsule, 1 CAP PO TID for 10 Days, #30 CAP 0 Refills Prov:CHENCHO GUSTAFSON MD 08/21/24 Tamsulosin HCl (Flomax) 0.4 Mg Cap.er.24h, 0.4 MG PO DAILY for 30 Days, #30 CAPSULE. Prov:FARHEEN HEARD IV, MD 01/15/24 Nicotine (Nicotine Patch) 21 Mg/24 Hour Patch.td24, 21 MG TD DAILY for 30 Days, #30 PATCH Prov:FARHEEN HEARD IV, MD 01/15/24 Metoprolol Tartrate (Lopressor 50Mg Tab) 50 Mg Tab, 50 MG PO BID for 60 Days, #30 TAB Prov:FARHEEN HEARD IV, MD 01/15/24 Reported Medications Hydrochlorothiazide (Hydrochlorothiazide) 12.5 Mg Tablet, 1 TAB PO AD for 30 Days, #30 TAB 0 Refills EVERY Friday AND Friday06/04/24 Oxycodone HCl (Oxycodone HCl) 20 Mg Tablet, 1 TAB PO QID PRN for pain for 30 Days, #120 TAB 0 Refills 06/04/24 Spironolactone (Spironolactone) 25 Mg Tablet, 25 MG PO DAILY, TAB 03/20/24 Ferrous Sulfate (Feosol) 325 Mg (65 Mg Iron) Tablet, 325 MG PO DAILY, TAB 01/10/24 Aspirin (ASPIRIN 81 MG ECTAB) 81 Mg Ectab, 81 MG PO DAILY, TAB.EC 01/10/24 Venlafaxine HCl (Effexor Xr) 150 Mg Cap.er.24h, 150 MG PO DAILY, CAPSULE.DR 01/10/24 Carbidopa/Levodopa (Carbidopa-Levo 25-100 mg Odt) 1 Each Tab.rapdis, 1 EACH PO TID, TAB 01/29/23 Torsemide (Torsemide) 20 Mg Tablet, 40 MG PO DAILY, TAB 05/15/22 Nitroglycerin (Nitroglycerin) 0.4 Mg Tab.subl, 0.4 MG SL AD, TAB.SL 07/31/21 Losartan Potassium (Losartan Potassium) 100 Mg Tablet, 50 MG PO DAILY, TAB 07/16/21 Aripiprazole (Aripiprazole) 15 Mg Tablet, 15 MG PO DAILY, TAB 07/16/21 Rosuvastatin Calcium (Rosuvastatin Calcium) 20 Mg Tablet, 20 MG PO DAILY, TAB 07/16/21 Past Medical History Past Medical History: COPD, High Cholesterol, Heart Disease, Hypertension Additional Past Medical Hx: PARKINSON, CHRONIC BACK PAIN Surgical History: Appendectomy Surgical History Other: HEART STENTS Social History: Smokers, Lives with family, Other RN Note Reviewed/Agreed w/PFSH: Yes Review of System Dictation REVIEW OF SYSTEMS: CONSTITUTIONAL: Patient denies fevers, chills, sweats and weight changes. EYES: Patient denies any visual symptoms. EARS, NOSE, AND THROAT: No difficulties with hearing. No symptoms of rhinitis or sore throat. CARDIOVASCULAR: Patient denies chest pains, palpitations, orthopnea and paroxysmal nocturnal dyspnea. RESPIRATORY: No dyspnea on exertion, no wheezing or cough. GI: No nausea, vomiting, diarrhea, constipation, abdominal pain, hematochezia or melena. : No urinary hesitancy or dribbling. No nocturia or urinary frequency. No abnormal urethral discharge. MUSCULOSKELETAL: Reports worsening of chronic low back pain; right greater than left. Denies falls/trauma NEUROLOGIC: No chronic headaches, no seizures. Patient denies numbness, tingling or weakness. PSYCHIATRIC: Patient denies problems with mood disturbance. No problems with anxiety. ENDOCRINE: No excessive urination or excessive thirst. DERMATOLOGIC: Patient denies any rashes or skin changes. Initial Vital Sign VS Vital Signs Date Time Temp Pulse Resp B/P (MAP) Pulse Ox O2 Delivery O2 Flow Rate FiO2 10/11/24 10:38 97.9 70 16 152/70 97 Room Air 0 10/11/24 12:32 21 Physical Exam Dictation Vital signs: Reviewed. Afberile. Constitutional: Uncomfortable. Head/Face: Normocephalic, atraumatic. Eyes: Periorbital areas with no swelling, redness, or edema. Lids and lashes are normal. Conjunctival injection is absent. Sclera anicteric. Pupils equal, round, reactive to light. ENT: Pinnas intact and no signs of trauma or erythema. Ear canals clear and no discharge. TMs no erythema. No nasal discharge or bleeding noted. Oropharynx with no exudate, redness, swelling, masses, exudates, or evidence of obstruction. Uvula midline. Mucous membranes moist. Neck: Trachea midline, no masses palpated, and no cervical lymphadenopathy. No swelling. Supple, full range of motion. Chest/Axilla: No tenderness, no crepitus, no paradoxical movement, no retractions. Cardiovascular: Regular rate, regular rhythm, no murmur, no gallops. Symmetric pulses. No peripheral edema. Respiratory: Respirations even and unlabored. Lung sounds clear; no wheezes, rales or rhonchi. Room air spo2 96% Gastrointestinal: Inspection is normal. No distention is appreciated. Bowel sounds are normal. No mass or organomegaly . There is no tenderness. No rebound. No rigidity. No voluntary or involuntary guarding. No Arcos's sign. : Rowley/leg bag urine clear/yellow. Neurological: Normal speech, gross motor function intact, gross sensory function intact. No focal weakness/Paresthesia. Musculoskeletal/Extremities: All extremities have full range of motion, There is tenderness upon palpation of lumbar spine; R>L. No deformity noted. Symmetric pulses. No focal weakness. Integumentary: Intact. Skin is normal color, warm and dry. Cap refill less than 3 seconds. Results (Laboratory/Radiology) CT Scan Comment: PATIENT: TYLER LIMA MR#: [id number] : 1950 SEX: M AGE: 73 LOCATION: [facility] ORDER 1112 STATUS: REG REPORT#: [id number] SERVICE 1110 REASON: worsening Low back pain ORDERING PHYSICIAN: ALBERTO VORA NP PROCEDURE: L SPIN WO - CT LUMBAR SPINE W/O CONTRAST CT LUMBAR SPINE W/O CONTRAST HISTORY: Chronic low back pain COMPARISON: None TECHNIQUE: Multiple sequential axial images of the lumbar spine were obtained including post processing sagittal and coronal reconstruction images. Patient was not given contrast through intravenous route. FINDINGS: There is atherosclerosis. Vascular calcifications are seen. Degenerative changes with lumbar spine spondylosis. There is no loss of vertebral height. Evaluation for disc and cord pathology is limited with CT study. No evidence of fracture or dislocation is seen. There are calcified splenic granuloma. There is diverticulosis. IMPRESSION: 1. No fracture is seen. DJD with lumbar spine spondylosis. CT was performed with one or more following dose reduction techniques: automated exposure control, adjustment of the mA and kv according to patient's size, or use of a iterative reconstruction technique. DICTATED BY: HEIDI MERAZ MD DATE: 10/11/24 1239 ELECTRONICALLY SIGNED BY: HEIDI MERAZ MD DATE: 10/11/24 1244 ED Course ED Course Orders Procedure Category Date Status Time Ketorolac PHA 10/11/24 Complete Tromethamine 15mg/Ml 11:00 Morphine 4mg Syg PHA 10/11/24 Complete (Morphine 4mg Syg) 11:00 Lidocaine (Lidocaine PHA 10/11/24 Complete Patch 4%) 11:00 Ct Lumbar Spine W/O CT 10/11/24 Resulted Contrast 11:10 Hydromorphone 0.5mg PHA 10/11/24 Complete Syg (Dilaudid 0.5mg 12:00 Current Medications Medications (Trade) Dose Ordered Sig/Jay Route PRN Reason Start Time Stop Time Status Last Admin Dose Admin Hydromorphone HCl (DiLAUDid 0.5MG INJ) 0.5 mg ONCE ONCE IVP 10/11/24 12:00 10/11/24 12:01 DC 10/11/24 12:30 Ketorolac Tromethamine (toRADol) 15 mg ONCE ONCE IV 10/11/24 11:00 10/11/24 11:02 DC 10/11/24 11:04 Lidocaine (Lidocaine Patch 4%) 1 each ONCE ONCE TP 10/11/24 11:00 10/11/24 11:02 DC 10/11/24 11:05 Morphine Sulfate (morPHINE 4MG SYG) 4 mg ONCE ONCE IVP 10/11/24 11:00 10/11/24 11:02 DC 10/11/24 11:04 Vital Signs Date Time Temp Pulse Resp B/P (MAP) Pulse Ox O2 Delivery O2 Flow Rate FiO2 10/11/24 12:32 72 18 150/68 97 Room Air* 0 21 10/11/24 10:38 97.9 70 16 152/70 97 Room Air 0 Patient received doses morphine, Toradol, lidocaine patch, and Dilaudid with little to no relief of chronic pain. He is ambulatory with steady gait using his cane. He has no focal weakness or paresthesia. No incontinence of bowel. CT scan of the lumbar spine with no fracture; DJD. No new findings. We have discussed findings with patient and his significant other. He will need to follow up with his PCP, pain management, and neurosurgeon. Medical Decision Making MDM MDM: Differential diagnosis: Exacerbation of chronic pain, cervical spine fracture Rationale: Tests considered and ordered secondary to shared decision making include: CT scan Previous outside records reviewed: Old ER visits. Risk of complication and/or morbidity or mortality of patient management: None Medications-Per medication reconciliation Need for hospitalization: Patient does not meet criteria for hospitalization. Need for emergency major/minor surgery: No There are no social concerns with this patient. Prescription drug management: Continue medications per home regimen Prescriptions will include symptomatic care Patient's prior external medical records from other ER visits were reviewed by me as indicated. Prior testing and results from previous visits were reviewed. Prior tests were taken into account with medical decision making and resource utilization, independent historian/historians were used to obtain complete medical history. I independently interpreted the test that were performed, results were reviewed by me and considered findings on radiology if ordered. Medical management and examination interpretation discussions were had by me with other qualified healthcare professionals as indicated for the patient's care. DX & DISP Disposition: Discharge Departure Impression: Primary Impression: Acute exacerbation of chronic low back pain Additional Impression: Chronic pain syndrome Condition: Stable Additional Instructions: Continue current medications. You will need to follow up with your primary care physician/pain management doctor. Follow up with , neurosurgeon, as previously planned. Referrals: VANESSA SMITH MD (PCP) MAGED BEAUCHAMP MD Time of Disposition: 13:18 ALBERTO VORA NP Oct 11, 2024 11:13
[2024-10-11] MEDS: hydroMORPHone 0.5 MG SYG (0.5MG/0.5ML) IVP ONE (12:30)
[2024-10-11 12:32] VITALS: BP 150/68; PULSE 72; RESP 18; O2SAT 97
--- NOTE | 2024-10-11 12:44 | HMCIMG ---
CT LUMBAR SPINE W/O CONTRAST HISTORY: Chronic low back pain COMPARISON: None TECHNIQUE: Multiple sequential axial images of the lumbar spine were obtained including post processing sagittal and coronal reconstruction images. Patient was not given contrast through intravenous route. FINDINGS: There is atherosclerosis. Vascular calcifications are seen. Degenerative changes with lumbar spine spondylosis. There is no loss of vertebral height. Evaluation for disc and cord pathology is limited with CT study. No evidence of fracture or dislocation is seen. There are calcified splenic granuloma. There is diverticulosis. IMPRESSION: 1. No fracture is seen. DJD with lumbar spine spondylosis. CT was performed with one or more following dose reduction techniques: automated exposure control, adjustment of the mA and kv according to patient's size, or use of a iterative reconstruction technique.
== END 2024-10-11 13:24 | disposition home or self-care (01) ==
LOC: EDH 10:32
DX: G89.4 Chronic pain syndrome (principal); M54.50 Low back pain, unspecified; J44.9 Chronic obstructive pulmonary disease, unspecified; E78.00 Pure hypercholesterolemia, unspecified; I10 Essential (primary) hypertension; F17.200 Nicotine dependence, unspecified, uncomplicated; Z79.82 Long term (current) use of aspirin; Z79.899 Other long term (current) drug therapy; Z90.49 Acquired absence of other specified parts of digestive tract; Z95.5 Presence of coronary angioplasty implant and graft
CPT/HCPCS: 99285; 96374; 72131; 96375; J1885; J1171; J2270

== ENCOUNTER 2024-10-17 21:46 | Emergency (ER) | payer OTHER ==
[~2024-10-17] VITALS: Ht 177.8 cm; Wt 90.7 kg
[2024-10-17 21:47] VITALS: BP 153/96; PULSE 96; RESP 20; TEMP 98.1
--- NOTE | 2024-10-18 00:31 | HMCIMG ---
CT HEAD/BRAIN W/O CONTRAST HISTORY: Status post fall COMPARISON: None TECHNIQUE: Multiple sequential axial images of the head were obtained from the base of the skull through vertex. Patient was not given contrast through intravenous route. FINDINGS: The ventricles and extraventricular CSF spaces are dilated consistent with cerebral atrophy. Nonspecific white matter changes seen. There is no midline shift, mass effect or herniation. No acute intracranial bleed is seen. Visualized portion of the paranasal sinuses are grossly within normal limits. IMPRESSION: 1. No acute intracranial bleed is seen. 2. Atrophy with white matter changes. CT was performed with one or more following dose reduction techniques: automated exposure control, adjustment of the mA and kv according to patient's size, or use of a iterative reconstruction technique.
--- NOTE | 2024-10-18 00:33 | HMCIMG ---
CT CERVICAL SPINE W/O CONTRAST HISTORY: Status post fall COMPARISON: None TECHNIQUE: Multiple sequential axial images of the cervical spine were obtained including post processing sagittal and coronal reconstruction images. Patient was not given contrast through intravenous route. FINDINGS: There is straightening of normal lordotic cervical curvature which may be related to muscle spasm or positioning. There is no loss of vertebral height. Evaluation for disc and cord pathology is limited with CT study. No evidence of fracture or dislocation is seen. Endplate degenerative changes with disc space narrowing is seen at C5-6 level. There are degenerative changes with cervical spine spondylosis and central canal narrowings. IMPRESSION: 1. No fracture is seen. DJD. CT was performed with one or more following dose reduction techniques: automated exposure control, adjustment of the mA and kv according to patient's size, or use of a iterative reconstruction technique.
--- NOTE | 2024-10-18 00:36 | HMCIMG ---
CT LUMBAR SPINE W/O CONTRAST HISTORY: Tripped and fall COMPARISON: 10/11/2024 TECHNIQUE: Multiple sequential axial images of the lumbar spine were obtained including post processing sagittal and coronal reconstruction images. Patient was not given contrast through intravenous route. FINDINGS: There is no loss of vertebral height. Evaluation for disc and cord pathology is limited with CT study. No evidence of fracture or dislocation is seen. There is atherosclerosis. There is diverticulosis. There is dextroscoliosis. There is lumbar spine spondylosis. DJD with lumbar spine spondylosis. IMPRESSION: 1. No fracture is seen. CT was performed with one or more following dose reduction techniques: automated exposure control, adjustment of the mA and kv according to patient's size, or use of a iterative reconstruction technique.
--- NOTE | 2024-10-18 00:59 | ERN ---
ED Note History of Present Illness Stated Complaint: BACK PAIN, SWOLLEN LEG Chief Complaint: Mechanical Fall Time Seen by MD: 23:36 Time Seen by Midlevel: 23:36 Dictation: The patient is a 73-year-old male with a history of COPD, CAD, CHF, Parkinson's, chronic Rowley who presents to the emergency department with complaints of a fall onset last Friday. Patient reports he tripped and fell. Reports he hit a his left side of the head against the wall. Denies any LOC, nausea or vomiting. Patient complaints of lower back pain. Denies any fecal incontinence. Patient with a chronic Rowley. Patient also reports that he has chronic back pain and that he needs to get surgery but has not been able to be cleared for it. Shoulder pain, left forearm pain. Patient's also reports that patient's lower legs have been getting more edematous. Reports the right leg is more swollen than the left and it is 3 days ago. Allergies: Coded Allergies: No Known Drug Allergies (Unverified Allergy, Unknown, 06/06/21) Home Meds Active Scripts Methylprednisolone (Medrol) 4 Mg Tab.ds.pk, 1 TAB PO AD for 6 Days, #21 TAB 0 Refills 6 on day 1 then reduce by one tablet daily until gone Prov:ЕЛЕНА CHIU NP 10/07/24 Acetaminophen (Tylenol) 500 Mg Tab, 1 TAB PO Q6HPRN PRN for pain or fever for 5 Days, #30 TAB 0 Refills Prov:CHENCHO GUSTAFSON MD 08/21/24 Clindamycin HCl (Clindamycin HCl) 300 Mg Capsule, 1 CAP PO TID for 10 Days, #30 CAP 0 Refills Prov:CHENCHO GUSTAFSON MD 08/21/24 Tamsulosin HCl (Flomax) 0.4 Mg Cap.er.24h, 0.4 MG PO DAILY for 30 Days, #30 CAPSULE. Prov:FARHEEN HEARD IV, MD 01/15/24 Nicotine (Nicotine Patch) 21 Mg/24 Hour Patch.td24, 21 MG TD DAILY for 30 Days, #30 PATCH Prov:FARHEEN HEARD IV, MD 01/15/24 Metoprolol Tartrate (Lopressor 50Mg Tab) 50 Mg Tab, 50 MG PO BID for 60 Days, #30 TAB Prov:FARHEEN HEARD IV, MD 01/15/24 Reported Medications Hydrochlorothiazide (Hydrochlorothiazide) 12.5 Mg Tablet, 1 TAB PO AD for 30 Days, #30 TAB 0 Refills EVERY Friday AND Friday06/04/24 Oxycodone HCl (Oxycodone HCl) 20 Mg Tablet, 1 TAB PO QID PRN for pain for 30 Days, #120 TAB 0 Refills 06/04/24 Spironolactone (Spironolactone) 25 Mg Tablet, 25 MG PO DAILY, TAB 03/20/24 Ferrous Sulfate (Feosol) 325 Mg (65 Mg Iron) Tablet, 325 MG PO DAILY, TAB 01/10/24 Aspirin (ASPIRIN 81 MG ECTAB) 81 Mg Ectab, 81 MG PO DAILY, TAB.EC 01/10/24 Venlafaxine HCl (Effexor Xr) 150 Mg Cap.er.24h, 150 MG PO DAILY, CAPSULE.DR 01/10/24 Carbidopa/Levodopa (Carbidopa-Levo 25-100 mg Odt) 1 Each Tab.rapdis, 1 EACH PO TID, TAB 01/29/23 Torsemide (Torsemide) 20 Mg Tablet, 40 MG PO DAILY, TAB 05/15/22 Nitroglycerin (Nitroglycerin) 0.4 Mg Tab.subl, 0.4 MG SL AD, TAB.SL 07/31/21 Losartan Potassium (Losartan Potassium) 100 Mg Tablet, 50 MG PO DAILY, TAB 07/16/21 Aripiprazole (Aripiprazole) 15 Mg Tablet, 15 MG PO DAILY, TAB 07/16/21 Rosuvastatin Calcium (Rosuvastatin Calcium) 20 Mg Tablet, 20 MG PO DAILY, TAB 07/16/21 Past Medical History Past Medical History: CAD, COPD, High Cholesterol, Heart Disease, Hypertension Additional Past Medical Hx: PARKINSON, CHRONIC BACK PAIN Surgical History: Appendectomy Surgical History Other: HEART STENTS Social History: Smokers, Lives with family, Other RN Note Reviewed/Agreed w/PFSH: Yes Review of System Dictation Constitutional: Negative for fever,chills, and weight loss Eyes: Negative for injury, pain,redness, and discharge ENT: Negative for injury,pain or swelling Cardiovascular: Negative for chest pain, palpitations, positive for edema Respiratory: Negative for shortness of breath, cough, and wheezing, Abdomen/GI: Negative for abdominal pain, nausea, vomiting, diarrhea, and co nstipation Back: Positive for low back pain : Negative for injury, bleeding and discharge MS/Extremity: Negative for injury and deformity positive for low back pain positive for left forearm pain, left shoulder Skin: Negative for rash, and discoloration Neuro: Negative for headache, weakness, numbness, tingling, and seizure Psych: Negative for suicide ideation, homicidal ideation, and hallucinations Initial Vital Sign VS Vital Signs Date Time Temp Pulse Resp B/P (MAP) Pulse Ox O2 Delivery O2 Flow Rate FiO2 10/17/24 21:47 98.1 96 20 153/96 97 Room Air Physical Exam Dictation Vital Signs reviewed General Appearance: Alert, oriented x 3, no acute distress, well developed, nourished. Head and Face: non-traumatic. Eyes: PERRL, pink conjunctivas, eyelid no trauma, anterior chamber with arcus senilis. Ears: Pinnas intact and no signs of trauma or erythema ear canals clear and no discharge TM no erythema Nose: No discharge, no bleeding. Oropharynx: Mouth normal, tongue pink. pharynx clear,no erythema, tonsils no exudates, no abscesses noted, mucous membrane moist Neck: Supple, non-tender, no thyromegaly, no masses, no JVD, no bruits Breast:Deferred Chest:No tenderness, no crepitus, no paradoxical movement, no retractions Lungs:Clear, well-ventilated, symmetric, no rales, no wheezing, no rhonchi, no stridor, good breath sounds bilaterally Heart: Regular rate, regular rhythm, no murmur, no gallops Vascular: 3+ right lower leg edema, 2+ left lower leg edema Abdomen: Soft, positive bowel sounds, nondistended, no guarding, nontender, no rebound, no masses no hepatomegaly, no splenomegaly, no Arcos's sign, no hernias. Rectal: Deferred Genital: Deferred Neurological: Normal speech, motor function intact, sensory function intact Musculoskeletal: Neck nontender, full range of motion, low back back nontender, full range of motion, Extremities: nontender, full range of motion Skin: Color pink, dry, no turgor, no rash, no lacerations, no abrasions, no contusions. Lymphatic: Deferred Results (Laboratory/Radiology) Labs Reviewed?: Yes ED Course ED Course Orders Procedure Category Date Status Time Cbc With Differential LAB 10/17/24 Logged 23:45 B-Type Natriuretic LAB 10/17/24 Logged Peptide 23:45 Chest 1vw RAD 10/17/24 Taken 23:45 12 Lead Ekg Tracing- EKG 10/17/24 Logged Technical 23:45 Creatine Kinase, Total LAB 10/17/24 Logged 23:45 Troponin I High LAB 10/17/24 Logged Sensitivity 23:45 Urinalysis Profile LAB 10/17/24 Logged 23:45 Basic Metabolic Panel LAB 10/17/24 Logged 23:45 Pt And Ptt LAB 10/17/24 Logged 23:45 Us Venous Doppler US 10/17/24 Taken Bilateral 23:45 Ct Head/Brain W/O CT 10/17/24 Resulted Contrast 23:45 Shoulder Comp 2+Vws Lt RAD 10/17/24 Taken 23:45 Forearm 2vws Lt RAD 10/17/24 Taken 23:45 Ct Cervical Spine W/O CT 10/17/24 Resulted Contrast 23:45 Ct Lumbar Spine W/O CT 10/17/24 Resulted Contrast 23:45 Vital Signs Date Time Temp Pulse Resp B/P (MAP) Pulse Ox O2 Delivery O2 Flow Rate FiO2 10/17/24 21:47 98.1 96 20 153/96 97 Room Air Medical Decision Making MDM The patient is a 73-year-old male with a history of COPD, CAD, CHF, Parkinson's, chronic Rowley who presents to the emergency department with complaints of a fall onset last Friday. Patient reports he tripped and fell. Reports he hit a his left side of the head against the wall. Denies any LOC, nausea or vomiting. Patient complaints of lower back pain. Denies any fecal incontinence. Patient with a chronic Rowley. Patient also reports that he has chronic back pain and that he needs to get surgery but has not been able to be cleared for it. Shoulder pain, left forearm pain. Patient's also reports that patient's lower legs have been getting more edematous. Reports the right leg is more swollen than the left and it is 3 days ago. DX & DISP Disposition: Other(Comment) (ELOPED) Departure Impression: Primary Impression: Eloped from emergency department Condition: Stable Referrals: VANESSA SMITH MD (PCP) I have reviewed the case, and I agree with, Diagnosis and Plan I performed the substantive portion of the visit. I have reviewed and pe rsonally made and approve the management plan that is documented in the note by myself or the MICHELLE. I acknowledge for responsibility for the patient's management plan. JOJO BRIDGES Oct 18, 2024 00:59 KHLOE MARIE Oct 18, 2024 02:23
--- NOTE | 2024-10-18 01:50 | NUR ---
CALLED PATIENT TO BE BEDED, NO ANSWER./ALVA
--- NOTE | 2024-10-18 02:24 | NUR ---
CALLED FARNKIE FROM TO ASK IF PATIENT WAS SEEN LEAVING, SECURITY STATED PATIENT LEFT APPROX. 20 MINS AGO. ED BINDERY ASSISTANT AWARE OF ELOPEMENT./ALVA
--- NOTE | 2024-10-18 08:58 | HMCIMG ---
Exam Type: US VENOUS DOPPLER BILATERAL Clinical Information: edema Comparison: None Findings: The examination shows normal deep venous system. There is normal compressibility at all levels. There is no intraluminal clot. There is no occlusion. Adequate response is obtained on augmentation. Impression: No evidence of DVT.
--- NOTE | 2024-10-18 09:27 | HMCIMG ---
Exam Type: SHOULDER COMP 2+VWS LT Clinical Information: sob Comparison: None FINDINGS: The examination is unremarkable. Specifically, the glenohumeral and acromioclavicular joints are preserved. Visualized portions of the humerus, the scapula, and the clavicle as well as the upper ribcage are unremarkable. No pulmonary pathology is noted in the visualized portions of the upper lobe. The soft tissues are preserved. There are no other gross abnormalities. IMPRESSION: NORMAL EXAMINATION.
--- NOTE | 2024-10-18 09:27 | HMCIMG ---
Exam Type: FOREARM 2VWS LT Clinical Information: sob Comparison: None Findings: The bone examination is unremarkable. No fractures or dislocations are seen. No radiopaque foreign bodies are noted. Soft tissues are preserved. IMPRESSION: Normal examination.
--- NOTE | 2024-10-18 09:42 | HMCIMG ---
Exam Type: CHEST 1VW Clinical Information: sob Comparison: None Findings: The lungs are clear of infiltrates. The heart is normal in size. The bony and soft tissue structures of the chest are unremarkable. Impression: Clear lungs.
== END 2024-10-18 02:26 | disposition left against medical advice (07) ==
LOC: EDH 21:46
DX: M54.50 Low back pain, unspecified (principal); M25.512 Pain in left shoulder; M79.632 Pain in left forearm; R60.9 Edema, unspecified; E78.00 Pure hypercholesterolemia, unspecified; F17.200 Nicotine dependence, unspecified, uncomplicated; I11.9 Hypertensive heart disease without heart failure; I25.10 Atherosclerotic heart disease of native coronary artery without angina pectoris; J44.9 Chronic obstructive pulmonary disease, unspecified; Z79.82 Long term (current) use of aspirin; Z79.899 Other long term (current) drug therapy; Z90.49 Acquired absence of other specified parts of digestive tract; Z95.5 Presence of coronary angioplasty implant and graft; W01.0XXA Fall on same level from slipping, tripping and stumbling without subsequent striking against object, initial encounter; Y93.89 Activity, other specified; Y92.89 Other specified places as the place of occurrence of the external cause; Y99.8 Other external cause status
CPT/HCPCS: 70450; 71045; 72125; 72131; 73030; 73090; 93970; 99284

== ENCOUNTER 2024-12-12 21:15 | Emergency (ER) | payer OTHER ==
[~2024-12-12] VITALS: Ht 177.8 cm; Wt 88.5 kg
[~2024-12-12 21:15] MED LIST changes: -ACET-66 PO; +ACET1030H IH; +ASPI-1197 PO; -CLIN-141 PO; -FERR-63 PO; +FINA5TAB41 PO; +FOLI0.8T43 PO; -HYDR12.54 PO; +HYDR50TA37 PO; +LANS15CA17 PO; -METH4TAB3 PO; +METO-409 PO; -METO50 PO; -NICO-777 TD; -OXYC20TA41 PO; -ROSU20TA98 PO; -SPIR25TA6 PO; -TAMS-1 PO; -TORS20TA4 PO
--- NOTE | 2024-12-12 21:36 | ERN ---
ED Note History of Present Illness Stated Complaint: BACK PAIN, CATHETER PAIN Time Seen by MD: 21:18 Dictation: PATIENT IS A 74-YEAR-OLD MALE COMING IN WITH MULTIPLE COMPLAINTS TO INCLUDE RIGHT LEG PAIN SWELLING HE HAS HAD FOR SEVERAL MONTHS. HE STATES HE HAS A AN ULCER TO THE BACK OF THE CALF. STATES HIS PRIMARY CARE DOCTOR IS THE [facility] AND THEY ARE TREATING THAT. SECOND COMPLAINT IS HE FEELS LIKE HE HAS HAD FLUID OVERLOAD WITH A EDEMA TO LOWER EXTREMITIES. THIRTY HAS A URINARY TRACT INFECTION THAT HAS BEEN TREATED BY THE [facility]. HE STATES HE WANTS A PAIN SHOT AND NEEDS RELIEF FOR HIS LEG. DENIES FEVER CHILLS AT THIS TIME. Allergies: Coded Allergies: No Known Drug Allergies (Unverified Allergy, Unknown, 06/06/21) Home Meds Reported Medications Folic Acid/Vit Bcomp,C (Renal-Jack Tablet) 0.8 Mg Tablet, 1 TAB PO DAILY for 30 Days, #30 TAB 0 Refills 11/21/24 Aspirin (Aspirin) 81 Mg Tab.chew, 1 TAB PO DAILY for 30 Days, #30 TAB 0 Refills 11/21/24 Hydralazine HCl (Hydralazine HCl) 50 Mg Tablet, 75 MG PO DAILY, TAB 11/21/24 Acetylcysteine (Mucomyst) 100 Mg/Ml (10 %) Solution, 3000 MG IH TID, ML 11/21/24 Lansoprazole (Lansoprazole) 15 Mg Capsule.dr, 15 MG PO AM, CAP 11/21/24 Finasteride (Finasteride) 5 Mg Tablet, 5 MG PO AM, TAB 11/21/24 Metoprolol Succinate (Metoprolol Succinate) 100 Mg Tab.er.24h, 150 MG PO AM, TAB 11/21/24 Aspirin (ASPIRIN 81 MG ECTAB) 81 Mg Ectab, 81 MG PO DAILY, TAB.EC 01/10/24 Venlafaxine HCl (Effexor Xr) 150 Mg Cap.er.24h, 150 MG PO DAILY, CAPSULE.DR 01/10/24 Carbidopa/Levodopa (Carbidopa-Levo 25-100 mg Odt) 1 Each Tab.rapdis, 1 EACH PO TID, TAB 01/29/23 Nitroglycerin (Nitroglycerin) 0.4 Mg Tab.subl, 0.4 MG SL AD, TAB.SL 07/31/21 Losartan Potassium (Losartan Potassium) 100 Mg Tablet, 50 MG PO DAILY, TAB 07/16/21 Aripiprazole (Aripiprazole) 15 Mg Tablet, 15 MG PO DAILY, TAB 07/16/21 Past Medical History Past Medical History: CAD, COPD, High Cholesterol, Heart Disease, Hypertension Additional Past Medical Hx: PARKINSON, CHRONIC BACK PAIN Surgical History: Appendectomy Surgical History Other: HEART STENTS Social History: Smokers, Lives with family, Other RN Note Reviewed/Agreed w/PFSH: Yes Review of System Dictation CONSTITUTIONAL: NEGATIVE EXCEPT FOR HPI HEAD/FACE: NEGATIVE EXCEPT FOR HPI EENT: NEGATIVE EXCEPT FOR HPI RESPIRATORY: NEGATIVE EXCEPT FOR HPI GASTROINTESTINAL/ABDOMINAL: NEGATIVE EXCEPT FOR HPI GENITOURINARY: NEGATIVE EXCEPT FOR HPI DOBSON CATHETER IN PLACE MUSCULOSKELETAL: NEGATIVE EXCEPT FOR HPI RIGHT LEG PAIN INTEGUMENTARY: NEGATIVE EXCEPT FOR HPI DISCOLORATION WITH ERYTHEMA TO RIGHT CALF WITH SWELLING NEUROLOGICAL/PSYCH: NEGATIVE EXCEPT FOR HPI HEMATOLOGIC/LYMPHATIC: NEGATIVE EXCEPT FOR HPI ALL SYSTEMS NEGATIVE, EXCEPT NOTED ABOVE. 13 POINT REVIEW OF SYSTEMS ASSESSED AND ALL NEGATIVE EXCEPT FOR ABOVE. Initial Vital Sign VS Vital Signs Date Time Temp Pulse Resp B/P (MAP) Pulse Ox O2 Delivery O2 Flow Rate FiO2 12/12/24 21:52 98.6 82 18 141/63 97 Room Air 0 Physical Exam Dictation VITAL SIGNS REVIEWED GENERAL APPEARANCE: ALERT, ORIENTED X 3, MILD ACUTE DISTRESS, WELL DEVELOPED, NOURISHED. MORBIDLY OBESE HEAD AND FACE: NON-TRAUMATIC. EYES: PERRL, PINK CONJUNCTIVAS, EYELID NO TRAUMA, ANTERIOR CHAMBER WITH ARCUS SENILIS. EARS: PINNAS INTACT AND NO SIGNS OF TRAUMA OR ERYTHEMA EAR CANALS CLEAR AND NO DISCHARGE TM NO ERYTHEMA NOSE: NO DISCHARGE, NO BLEEDING. OROPHARYNX: MOUTH NORMAL, TONGUE PINK, PHARYNX CLEAR,NO ERYTHEMA, TONSILS NO EXUDATES, NO ABSCESSES NOTED, MUCOUS MEMBRANE MOIST NECK: SUPPLE, NON-TENDER, NO THYROMEGALY, NO MASSES, NO JVD, NO BRUITS BREAST:DEFERRED CHEST:NO TENDERNESS, NO CREPITUS, NO PARADOXICAL MOVEMENT, NO RETRACTIONS LUNGS:CLEAR, WELL-VENTILATED, SYMMETRIC, NO RALES, NO WHEEZING, NO RHONCHI, NO STRIDOR, GOOD BREATH SOUNDS BILATERALLY HEART: REGULAR RATE, REGULAR RHYTHM, NO MURMUR, NO GALLOPS VASCULAR: NO PERIPHERAL EDEMA, ABDOMEN: SOFT, POSITIVE BOWEL SOUNDS, NONDISTENDED, NO GUARDING, NONTENDER, NO REBOUND, NO MASSES NO HEPATOMEGALY, NO SPLENOMEGALY, NO PIMENTEL'S SIGN, NO HERNIAS. RECTAL: DEFERRED GENITAL: DOBSON CATHETER IN PLACE WITH QUANTITY SUFFICIENT AMOUNTS OF CLOUDY UR INE. NEUROLOGICAL: NORMAL SPEECH, MOTOR FUNCTION INTACT, SENSORY FUNCTION INTACT MUSCULOSKELETAL: NECK NONTENDER, FULL RANGE OF MOTION, BACK NONTENDER, FULL RANGE OF MOTION, EXTREMITIES: RIGHT CALF TENDERNESS SWELLING. STASIS ULCERS NOTED SKIN: COLOR PINK, MILD ERYTHEMA TO RIGHT CALF WITH CALF TENDERNESS SWELLING LYMPHATIC: DEFERRED Results (Laboratory/Radiology) Laboratory/Radiology Laboratory Tests Test 12/12/24 21:47 White Blood Count 11.3 K/uL (4.8-10.8) H Red Blood Count 3.27 MIL/uL (4.50-6.20) L Hemoglobin 9.9 g/dL (14.0-18.0) L Hematocrit 28.2 % (42-54) L Mean Corpuscular Volume 86.2 fL (79-99) Mean Corpuscular Hemoglobin 30.3 pg (27.0-33.0) Mean Corpuscular Hemoglobin Concent 35.1 g/dL (32.0-36.0) Red Cell Distribution Width 13.1 % (11.0-15.5) Platelet Count 311 K/uL (130-400) Mean Platelet Volume 8.3 fL (7.5-10.5) Immature Granulocyte % (Auto) 0.5 % (0-1) Neutrophils (%) (Auto) 65.4 % (40.0-77.0) Lymphocytes (%) (Auto) 14.4 % (21.0-51.0) L Monocytes (%) (Auto) 12.7 % (3.0-13.0) Eosinophils (%) (Auto) 6.6 % (0.0-8.0) Basophils (%) (Auto) 0.4 % (0.0-5.0) Neutrophils # (Auto) 7.4 K/uL (1.8-7.7) Lymphocytes # (Auto) 1.6 K/uL (1.0-4.8) Monocytes # (Auto) 1.4 K/uL (0.1-1.0) H Eosinophils # (Auto) 0.75 K/uL (0.00-0.70) H Basophils # (Auto) 0.05 K/uL (0.00-0.20) Absolute Immature Granulocyte (auto 0.06 K/uL (0-1) Nucleated Red Blood Cells 0.0 % (0.0-0.19) Sodium Level 121 mmol/L (136-145) L Potassium Level 4.6 mmol/L (3.5-5.1) Chloride Level 91 mmol/L (101-111) L Carbon Dioxide Level 22 mmol/L (21-32) Blood Urea Nitrogen 22 mg/dL (7-18) H Creatinine 1.3 mg/dL (0.5-1.3) Glomerular Filtration Rate Calc 57 mL/min (>90) Random Glucose 99 mg/dL (70-105) Lactic Acid Level 1.0 mmol/L (0.8-2.5) Total Calcium 8.5 mg/dL (8.5-10.1) Troponin I High Sensitivity 29 ng/L (4-75) B-Type Natriuretic Peptide 137 pg/mL (0-100) H RIGHT LEG ULTRASOUND DOPPLER NEGATIVE FOR DVT Labs Reviewed?: Yes ED Course ED Course Orders Procedure Category Date Status Time Us Venous Doppler US 12/12/24 Taken Unilateral 21:32 Cbc With Differential LAB 12/12/24 Complete 21:32 Blood Cult CECILIO 12/12/24 In Process 21:32 Urinalysis Profile LAB 12/12/24 Logged 21:32 Troponin I High LAB 12/12/24 Complete Sensitivity 21:32 B-Type Natriuretic LAB 12/12/24 Complete Peptide 21:32 Lactic Acid LAB 12/12/24 Complete 21:32 Basic Metabolic Panel LAB 12/12/24 Complete 21:32 Vital Signs Date Time Temp Pulse Resp B/P (MAP) Pulse Ox O2 Delivery O2 Flow Rate FiO2 12/12/24 21:52 98.6 82 18 141/63 97 Room Air 0 0200/CALL PATIENT FROM WAITING ROOM TO BRING HIM INTO THE EMERGENCY ROOM. HE WAS NOT AVAILABLE. SECURITY STATES HE HAD LEFT Medical Decision Making MDM PATIENT ELOPED FROM WAITING ROOM DX & DISP Disposition: AMA Departure Impression: Primary Impression: Chronic indwelling Dobson catheter Additional Impressions: Right calf pain, Hyponatremia, Hypochloremia, Tobacco abuse Condition: Stable Referrals: VANESSA SMITH MD (PCP) [facility] December 12, 2024 21:36
[2024-12-12 21:52] VITALS: BP 141/63; PULSE 82; RESP 18; TEMP 98.6
[2024-12-12 21:57] LABS: BASOPHILS # (AUTO) 0.05 K/uL (0.00-0.20); BASOPHILS % (AUTO) 0.4 % (0.0-5.0); EOSINOPHILS # (AUTO) 0.75 K/uL (0.00-0.70); EOSINOPHILS % (AUTO) 6.6 % (0.0-8.0); HEMATOCRIT 28.2 % (42-54); IMMATURE GRANULOCYTE ABSOLUTE 0.06 K/uL (0-1); LYMPHOCYTES # (AUTO) 1.6 K/uL (1.0-4.8); LYMPHOCYTES % (AUTO) 14.4 % (21.0-51.0); MEAN CORPUSCULAR HEMOGLOBIN 30.3 pg (27.0-33.0); MEAN CORPUSCULAR HGB CONC 35.1 g/dL (32.0-36.0); MEAN CORPUSCULAR VOLUME 86.2 fL (79-99); MONOCYTES # (AUTO) 1.4 K/uL (0.1-1.0); MONOCYTES % (AUTO) 12.7 % (3.0-13.0); NEUTROPHILS # (AUTO) 7.4 K/uL (1.8-7.7); NEUTROPHILS % (AUTO) 65.4 % (40.0-77.0); PLATELET COUNT (AUTO) 311 K/uL (130-400); RED BLOOD CELL COUNT(AUTO) 3.27 MIL/uL (4.50-6.20); RED CELL DISTRIBUTION WIDTH 13.1 % (11.0-15.5); WHITE BLOOD COUNT (AUTO) 11.3 K/uL (4.8-10.8)
[2024-12-12 22:12] LABS: CREATININE 1.3 mg/dL (0.5-1.3); POTASSIUM 4.6 mmol/L (3.5-5.1)
[2024-12-12 22:37] LABS: B-TYPE NATRIURETIC PEPTIDE 137 pg/mL (0-100)
--- NOTE | 2024-12-13 08:38 | HMCIMG ---
Exam Type: US VENOUS DOPPLER UNILATERAL Clinical Information: RIGHT LEG AND CALF SWELLING AND PAIN Comparison: None Findings: The examination shows normal deep venous system. There is normal compressibility at all levels. There is no intraluminal clot. There is no occlusion. Adequate response is obtained on augmentation. Impression: No evidence of DVT.
== END 2024-12-12 21:52 ==
LOC: EDH 21:15
DX: M79.661 Pain in right lower leg (principal); E87.1 Hypo-osmolality and hyponatremia; E87.8 Other disorders of electrolyte and fluid balance, not elsewhere classified; F17.200 Nicotine dependence, unspecified, uncomplicated; E78.00 Pure hypercholesterolemia, unspecified; I10 Essential (primary) hypertension; I25.10 Atherosclerotic heart disease of native coronary artery without angina pectoris; J44.9 Chronic obstructive pulmonary disease, unspecified; Z79.82 Long term (current) use of aspirin; Z79.899 Other long term (current) drug therapy; Z90.49 Acquired absence of other specified parts of digestive tract; Z95.5 Presence of coronary angioplasty implant and graft
CPT/HCPCS: 36415; 80048; 83605; 83880; 84484; 85025; 87040; 93971; 99284

== ENCOUNTER 2025-03-12 11:18 | Emergency (ER) | payer OTHER ==
[~2025-03-12] VITALS: Ht 177.8 cm; Wt 90.7 kg
[2025-03-12 11:40] LABS: IMMATURE GRANULOCYTE ABSOLUTE 0.06 K/uL (0-1); NUCLEATED RED BLOOD CELLS 0.0 % (0.0-0.19); PLATELET COUNT (AUTO) 239 K/uL (130-400); RED BLOOD CELL COUNT(AUTO) 4.15 MIL/uL (4.50-6.20); RED CELL DISTRIBUTION WIDTH 12.6 % (11.0-15.5); WHITE BLOOD COUNT (AUTO) 9.5 K/uL (4.8-10.8)
[2025-03-12 11:53] LABS: CREATININE 1.4 mg/dL (0.5-1.3); GLOMERULAR FILTR. RATE CALC 52.0 mL/min (>90); GLUCOSE,RANDOM 142.0 mg/dL (70-105); SODIUM SERUM 126.0 mmol/L (136-145); UREA NITROGEN, BLOOD 37.0 mg/dL (7-18)
[2025-03-12 11:59] LABS: CREATINE KINASE, TOTAL 51.0 U/L (21-232)
[2025-03-12 12:19] LABS: GLUCOSE, URINE (UA) NEGATIVE (NEGATIVE); LEUKOCYTE ESTERASE ,URINE 500 Leu/uL (NEGATIVE); NITRATE,URINE 2+ (NEGATIVE); OCCULT BLOOD,URINE NEGATIVE (NEGATIVE)
[2025-03-12 12:20] LABS: ADD UA MICROSCOPIC YES; APPEARANCE,URINE HAZY (CLEAR)
[2025-03-12 12:27] LABS: WBC CLUMP RARE /HPF (0-1)
--- NOTE | 2025-03-12 12:30 | HMCIMG ---
EXAM: CR Chest, 1 View. CLINICAL HISTORY: cp COMPARISON: None provided. FINDINGS: LUNGS: There is no mass, infiltrate, or acute pulmonary abnormality. PLEURAL SPACES: No pleural effusion or pneumothorax. MEDIASTINUM: Cardiac size and mediastinal contours within normal limits. BONES: No acute osseous abnormality. IMPRESSION: No acute cardiopulmonary pathology is evident. /Canvas
--- NOTE | 2025-03-12 12:48 | ERN ---
General Chief Complaint: Chest Pain Stated Complaint: CP Time Seen by MD: 11:21 Source: patient History of Present Illness Initial Comments Patient is a 74-year-old male coming in complaining of chest pressure. Patient states he took two nitros but the pain is still present. He has had a catheterization years ago. Allergies: Coded Allergies: No Known Drug Allergies (Unverified Allergy, Unknown, 06/06/21) Home Meds Reported Medications Folic Acid/Vit Bcomp,C (Renal-Jack Tablet) 0.8 Mg Tablet, 1 TAB PO DAILY for 30 Days, #30 TAB 0 Refills 11/21/24 Aspirin (Aspirin) 81 Mg Tab.chew, 1 TAB PO DAILY for 30 Days, #30 TAB 0 Refills 11/21/24 Hydralazine HCl (Hydralazine HCl) 50 Mg Tablet, 75 MG PO DAILY, TAB 11/21/24 Acetylcysteine (Mucomyst) 100 Mg/Ml (10 %) Solution, 3000 MG IH TID, ML 11/21/24 Lansoprazole (Lansoprazole) 15 Mg Capsule.dr, 15 MG PO AM, CAP 11/21/24 Finasteride (Finasteride) 5 Mg Tablet, 5 MG PO AM, TAB 11/21/24 Metoprolol Succinate (Metoprolol Succinate) 100 Mg Tab.er.24h, 150 MG PO AM, TAB 11/21/24 Aspirin (ASPIRIN 81 MG ECTAB) 81 Mg Ectab, 81 MG PO DAILY, TAB.EC 01/10/24 Venlafaxine HCl (Effexor Xr) 150 Mg Cap.er.24h, 150 MG PO DAILY, CAPSULE.DR 01/10/24 Carbidopa/Levodopa (Carbidopa-Levo 25-100 mg Odt) 1 Each Tab.rapdis, 1 EACH PO TID, TAB 01/29/23 Nitroglycerin (Nitroglycerin) 0.4 Mg Tab.subl, 0.4 MG SL AD, TAB.SL 07/31/21 Losartan Potassium (Losartan Potassium) 100 Mg Tablet, 50 MG PO DAILY, TAB 07/16/21 Aripiprazole (Aripiprazole) 15 Mg Tablet, 15 MG PO DAILY, TAB 07/16/21 Past Medical History Past Medical History: [facility], Other Medical History Other: parkinsons, cardiac stents x2 Past Surgical History: Appendectomy, Other Surgical History Other: rt hand sx, eye sx Social History Social History: Smokers, Lives with family, Other ROS Dictation CONSTITUTIONAL: No chills, no fever, no weakness, no diaphoresis, no malaise. HEAD/FACE: No signs of trauma. EENT: No eye pain, no blurred vision, no tearing, no double vision, no ear pain, no ear discharge, no nose pain, no nasal congestion, no throat pain, no throat swelling, no mouth pain. RESPIRATORY: No cough, no orthopnea, no SOB, no stridor, no wheezing. CARDIOVASCULAR: chest pain, no edema, no palpitations, no syncope. GASTROINTESTINAL/ABDOMINAL: No abdominal pain, no constipation, no diarrhea, no nausea, no vomiting. GENITOURINARY: No abnormal discharge, no dysuria, no frequent urination, no hematuria. No complaints of pain in the genitals. MUSCULOSKELETAL: No back pain, no gout, no joint pain, no joint swelling, no muscle pain, no muscle stiffness, no neck pain. INTEGUMENTARY: No change in color, no change in hair/nails, no dryness, no lesion, no lumps, no rash. NEUROLOGICAL/PSYCH: No anxiety, not depressed, no emotional problem, no headache, no numbness, no pre-existing deficit, no history of seizures, no tremors, no weakness. HEMATOLOGIC/LYMPHATIC: Not anemic, no history of blood clots, no apparent bleeding, no bruising, glands not swollen. All Systems Negative, Except as Noted. Physical Exam Physical Exam Dictation VITAL SIGNS: Reviewed. GENERAL APPEARANCE: Alert, oriented x3, no acute distress, obese. HEAD AND FACE: Non-traumatic. EYES: PERRL, pink conjunctivas, eyelid no trauma, anterior chamber clear. EARS: Pinnas intact and no signs of trauma or erythema. Ear canals clear and no discharge. TMs no erythema. NOSE: No discharge, no bleeding. OROPHARYNX: Mouth normal, teeth no caries, tongue pink. Pharynx clear, no erythema. Tonsils no exudates, no abscesses noted. Mucous membrane moist. NECK: Supple, non-tender, no thyromegaly, no masses, no JVD, no bruits. BREAST: Deferred. CHEST: No tenderness, no crepitus, no paradoxical movement, no retractions. LUNGS: Clear, well-ventilated, symmetric, no rales, no wheezing, no rhonchi, no stridor, good breath sounds bilaterally. HEART: Regular rate, regular rhythm, no murmur, no gallops. VASCULAR: No peripheral edema. ABDOMEN: Soft, positive bowel sounds, nondistended, no guarding, nontender, no rebound, no masses no hepatomegaly, no splenomegaly, no Arcos's sign, no hernias. RECTAL: Deferred. GENITAL: Deferred. NEUROLOGICAL: Normal speech, gross motor function intact, gross sensory function intact. MUSCULOSKELETAL: Neck nontender, full range of motion, back nontender, full range of motion. EXTREMITIES: Nontender, full range of motion. SKIN: Color pink, dry, no turgor, no rash, no lacerations, no abrasions, no contusions. LYMPHATICS: Deferred. Results Laboratory and Microbiology Lab and Micro Result Laboratory Tests Test 03/12/25 11:36 03/12/25 12:00 White Blood Count 9.5 K/uL (4.8-10.8) Red Blood Count 4.15 MIL/uL (4.50-6.20) L Hemoglobin 12.1 g/dL (14.0-18.0) L Hematocrit 35.0 % (42-54) L Mean Corpuscular Volume 84.3 fL (79-99) Mean Corpuscular Hemoglobin 29.2 pg (27.0-33.0) Mean Corpuscular Hemoglobin Concent 34.6 g/dL (32.0-36.0) Red Cell Distribution Width 12.6 % (11.0-15.5) Platelet Count 239 K/uL (130-400) Mean Platelet Volume 8.3 fL (7.5-10.5) Immature Granulocyte % (Auto) 0.6 % (0-1) Neutrophils (%) (Auto) 66.6 % (40.0-77.0) Lymphocytes (%) (Auto) 18.3 % (21.0-51.0) L Monocytes (%) (Auto) 7.1 % (3.0-13.0) Eosinophils (%) (Auto) 6.6 % (0.0-8.0) Basophils (%) (Auto) 0.8 % (0.0-5.0) Neutrophils # (Auto) 6.3 K/uL (1.8-7.7) Lymphocytes # (Auto) 1.7 K/uL (1.0-4.8) Monocytes # (Auto) 0.7 K/uL (0.1-1.0) Eosinophils # (Auto) 0.62 K/uL (0.00-0.70) Basophils # (Auto) 0.08 K/uL (0.00-0.20) Absolute Immature Granulocyte (auto 0.06 K/uL (0-1) Nucleated Red Blood Cells 0.0 % (0.0-0.19) Sodium Level 126 mmol/L (136-145) L Potassium Level 4.5 mmol/L (3.5-5.1) Chloride Level 94 mmol/L (101-111) L Carbon Dioxide Level 26 mmol/L (21-32) Blood Urea Nitrogen 37 mg/dL (7-18) H Creatinine 1.4 mg/dL (0.5-1.3) H Glomerular Filtration Rate Calc 52 mL/min (>90) Random Glucose 142 mg/dL (70-105) H Total Calcium 8.8 mg/dL (8.5-10.1) Magnesium Level 2.20 mg/dL (1.80-2.40) Total Creatine Kinase 51 U/L (21-232) # Troponin I High Sensitivity 16 ng/L (4-75) Urine Color LIGHT-YELLOW (YELLOW) Urine Appearance HAZY (CLEAR) Urine pH 6.5 (5.0-8.0) Urine Specific [place] 1.011 (1.001-1.031) Urine Protein NEGATIVE mg/dL (NEGATIVE) Urine Glucose (UA) NEGATIVE mg/dL (NEGATIVE) Urine Ketones NEGATIVE mg/dL (NEGATIVE) Urine Occult Blood NEGATIVE (NEGATIVE) Urine Nitrate 2+ (NEGATIVE) H Urine Bilirubin NEGATIVE mg/dL (NEGATIVE) Urine Urobilinogen 0.2 mg/dL (0.2-1.0) Urine Leukocyte Esterase 500 Anjelica/uL (NEGATIVE) H Urine RBC 2-5 /HPF (0-1) H Urine WBC TNTC /HPF (0-1) H Urine WBC Clumps (Auto) RARE /HPF (0-1) Urine Bacteria FEW /HPF (None Seen) Labs Reviewed?: Yes EKG/XRAY/US/CT/MRI EKG Comment 03/12/2025 time 11:23 a.m. Ventricular rate 79 Sinus rhythm [place] [address] wave elevation or depression MDM MDM: Differential diagnosis: Chest pain, UTI, dehydration, Rationale: Tests considered and ordered secondary to shared decision making include: labs, ECG and radiology Previous outside records reviewed: Old ER visits. Risk of complication and/or morbidity or mortality of patient management: None Medications-Per medication reconciliation Need for hospitalization: Patient does meet criteria for hospitalization. Need for emergency major/minor surgery: No There are no social concerns with this patient. Prescription drug management Prescriptions will include symptomatic care Patient's prior external medical records from other ER visits were reviewed by me as indicated. Prior testing and results from previous visits were reviewed. Prior tests were taken into account with medical decision making and resource utilization, independent historian/historians were used to obtain complete medical history. I independently interpreted the test that were performed, results were reviewed by me and considered findings on radiology if ordered. Medical management and examination interpretation discussions were had by me with other qualified healthcare professionals as indicated for the patient's care. Patient will be admitted under the care of hospitalist group for ongoing management. ED Course Orders Procedure Category Date Status Time Cbc With Differential LAB 03/12/25 Complete 11:22 Chest 1vw RAD 03/12/25 Resulted 11:22 12 Lead Ekg Tracing- EKG 03/12/25 Logged Technical 11:22 Magnesium LAB 03/12/25 Complete 11:22 Creatine Kinase, Total LAB 03/12/25 Complete 11:22 Troponin I High LAB 03/12/25 Complete Sensitivity 11:22 Urinalysis Profile LAB 03/12/25 Complete 11:22 Basic Metabolic Panel LAB 03/12/25 Complete 11:22 Pantoprazole 40mg Inj PHA 03/12/25 Complete (Protonix 40mg Inj 11:30 Culture Urine CECILIO 03/12/25 In Process 12:21 Ceftriaxone 1g Vial PHA 03/12/25 In Process (Rocephine 1g Inj) 13:00 Troponin I High LAB 03/12/25 In Process Sensitivity 12:41 Current Medications Medications (Trade) Dose Ordered Sig/Jay Route PRN Reason Start Time Stop Time Status Last Admin Dose Admin Ceftriaxone Sodium (ROCEphine 1G INJ) 1 gm ONCE ONCE IVPB 03/12/25 13:00 03/12/25 13:01 Pantoprazole Sodium (PROTonix 40MG INJ) 40 mg ONCE ONCE IVP 03/12/25 11:30 03/12/25 11:31 DC 03/12/25 12:02 Vital Signs Date Time Temp Pulse Resp B/P (MAP) Pulse Ox O2 Delivery O2 Flow Rate FiO2 03/12/25 12:25 98.2 78 18 147/67 99 Room Air* 0 21 03/12/25 11:22 98.1 80 20 117/70 98 Room Air* 0 21 03/12/25 11:18 98.1 80 20 117/70 98 Room Air 0 DX & DISP Disposition: Inpatient Decision to Admit Time: 12:58 Departure Impression: Primary Impression: UTI (urinary tract infection) Additional Impressions: Hypochloremia, Hyponatremia, Chest pain Condition: Stable Referrals: VANESSA SMITH MD (PCP) CHENCHO GUSTAFSON MD Mar 12, 2025 12:48
--- NOTE | 2025-03-12 13:03 | HP ---
[facility] HISTORY AND PHYSICAL Date of Service: Mar 12, 2025 Time of Service: 12:59 HISTORY OF PRESENT ILLNESS: [ ] Admission date 03/12/2025 PCP Chief complaint chest pain This is a 74-year-old male presents in ED with chief complaints of chest pain. Patient reports taken two sublingual nitro prior to coming to ED. patient has cardiac history heart stents x2 in the past. Location mid sternal, chest pain did not radiate pain was 6/10 on pain scale aggravating factors deep breath, alleviated factors none. First set of troponins were negative ER workup UA was positive for UTI. Denied shortness a breath palpitation dizziness. Patient is was seen in ED he is adamant about leaving against medical advice he said day he [facility] He said chest pain has resolved and we will be going home. Laboratory results WBCs 9.5 Hemoglobin 12.1 hematocrit 35. 0 platelets 239, sodium 126 chloride 94 BUN37 creatinine 1.4 EGFR 52 glucose 142 troponin 16 Urinalysis Leukocyte esterase 500 REVIEW OF SYSTEMS A14 point ROS obtained all relevant positive documented otherwise ROS negative PAST MEDICAL HISTORY: [ ] Parkinson's heart disease PAST SURGICAL HISTORY: [ ] Eye surgery right hand surgery Heart stents x2 PAST SOCIAL HISTORY: [ ] Smoker FAMILY HISTORY: [ ] Noncontributory Coded Allergies: No Known Drug Allergies (Unverified Allergy, Unknown, 06/06/21) PHYSICAL EXAM GENERAL APPEARANCE: The patient is awake, alert, and oriented, in no acute cardiopulmonary distress. NEUROLOGICAL: Cranial nerves II-XII grossly intact. Motor is 5/5 in bilateral upper and lower extremities proximal to distal. No sensory deficits. HEENT: Face is symmetric. Pupils are equal and reactive. Extraocular movements are intact. NECK: Supple. No JVD. No thyromegaly. No submental, submandibular, pre- /postauricular, occipital or supraclavicular lymphadenopathy. CHEST: Normal chest expansion. No Telemetry. LUNGS: Absence of any rales, rhonchi or any wheezing. CARDIOVASCULAR: Regular. S1 and S2 normal. No appreciable rubs, murmurs or gallops. ABDOMEN: Soft, nontender, and nondistended. There is no rebound, voluntary guarding, or rigidity. : Deferred. No [place]. EXTREMITIES: Non-edematous and not cyanotic. No clubbing. Good capillary refill. SKIN: No skin breakdown. Vital Sign (Last 24 Hours) 03/12/25 12:25 Temp 98.2 Pulse 78 Resp 18 B/P (MAP) 147/67 Pulse Ox 99 O2 Delivery Room Air* O2 Flow Rate 0 FiO2 21 LABS: Laboratory: Test 03/12/25 12:00 03/12/25 11:36 Range/Units Urine Color LIGHT-YELLOW YELLOW Urine Appearance HAZY CLEAR Urine pH 6.5 5.0-8.0 Urine Specific [place] 1.011 1.001-1.031 Urine Protein NEGATIVE NEGATIVE mg/dL Urine Glucose (UA) NEGATIVE NEGATIVE mg/dL Urine Ketones NEGATIVE NEGATIVE mg/dL Urine Occult Blood NEGATIVE NEGATIVE Urine Nitrate 2+ H NEGATIVE Urine Bilirubin NEGATIVE NEGATIVE mg/dL Urine Urobilinogen 0.2 0.2-1.0 mg/dL Urine Leukocyte Esterase 500 H NEGATIVE Anjelica/uL Urine RBC 2-5 H 0-1 /HPF Urine WBC TNTC H 0-1 /HPF Urine WBC Clumps (Auto) RARE 0-1 /HPF Urine Bacteria FEW None Seen /HPF White Blood Count 9.5 4.8-10.8 K/uL Red Blood Count 4.15 L 4.50-6.20 MIL/uL Hemoglobin 12.1 L 14.0-18.0 g/dL Hematocrit 35.0 L 42-54 % Mean Corpuscular Volume 84.3 79-99 fL Mean Corpuscular Hemoglobin 29.2 27.0-33.0 pg Mean Corpuscular Hemoglobin Concent 34.6 32.0-36.0 g/dL Red Cell Distribution Width 12.6 11.0-15.5 % Platelet Count 239 130-400 K/uL Mean Platelet Volume 8.3 7.5-10.5 fL Immature Granulocyte % (Auto) 0.6 0-1 % Neutrophils (%) (Auto) 66.6 40.0-77.0 % Lymphocytes (%) (Auto) 18.3 L 21.0-51.0 % Monocytes (%) (Auto) 7.1 3.0-13.0 % Eosinophils (%) (Auto) 6.6 0.0-8.0 % Basophils (%) (Auto) 0.8 0.0-5.0 % Neutrophils # (Auto) 6.3 1.8-7.7 K/uL Lymphocytes # (Auto) 1.7 1.0-4.8 K/uL Monocytes # (Auto) 0.7 0.1-1.0 K/uL Eosinophils # (Auto) 0.62 0.00-0.70 K/uL Basophils # (Auto) 0.08 0.00-0.20 K/uL Absolute Immature Granulocyte (auto 0.06 0-1 K/uL Nucleated Red Blood Cells 0.0 0.0-0.19 % Sodium Level 126 L 136-145 mmol/L Potassium Level 4.5 3.5-5.1 mmol/L Chloride Level 94 L 101-111 mmol/L Carbon Dioxide Level 26 21-32 mmol/L Blood Urea Nitrogen 37 H 7-18 mg/dL Creatinine 1.4 H 0.5-1.3 mg/dL Glomerular Filtration Rate Calc 52 >90 mL/min Random Glucose 142 H 70-105 mg/dL Total Calcium 8.8 8.5-10.1 mg/dL Magnesium Level 2.20 1.80-2.40 mg/dL Total Creatine Kinase 51 # 21-232 U/L Troponin I High Sensitivity 16 4-75 ng/L DIAGNOSTICS / RADIOLOGY: [ ] ASSESSMENT: Atypical chest pain rule out ACS UTI POA DAVID prerenal POA Anemia Tobacco dependency: POA electrolytes derangement Hyponatremia POA Parkinson Disease PLAN: Admit: Medical with tele condition: Status: Full code IVF: NS at 75 mL/hour ACS protocol obqrtge75 mg p.o. now then daily. Nitroglycerin 0.4 mg sublingually as needed for chest pain Antibiotics: Rocephin 1 gm q 24 hrs Microbiology: Urine cultures in process Imaging: Echo to evaluate LV function We will monitor H&H trend anemia workup we will transfuse as needed to keep hemoglobin above 7.0 Labs cbc, cmp, mag+ TSH and Lipid panel Replace electrolytes as needed as per protocol to keep potassium above 4.0 magnesium 2.0. Home medications pending to be reviewed by RN nurse. Smoking cessation PRN: MEDICATIONS Tylenol 650 mg po every 4 hrs for fever zofran 4 mg IV every 6 hrs for n/v Hydralazine 5 mg IV every 4 hrs systolic pressure > 160 bowel regiment: lactulose 20 gm PO BID PRN constipation Pain management: Morphine2 mg IV as needed pain Fall precautions Supportive measures: DVT ppx, GI ppx all questions answered time spent: > 35 min Supervising MD: Dr. Armond Locke c/d This document was generated in part using voice recognition software, occasional wrong word or sound alike substitutions may have occurred due to the inherent limitations of voice recognition software. Read the chart carefully and recognize using context, where the substitutions have occurred. Although every effort was made to edit the content, paralegal instructor and typing errors may occur ADVANCED CARE PLANNING 1. Which of the following were discussed? Hospice Care - Yes / No Therapeutic options - Yes / No Advance Directives - Yes / No Other discussions - 2. Discussed with who? 3. Voluntary nature of this service was explained to the patient? Yes / No 4. Amount of time spent - 5. Reviewed by Physician? (if this service was performed by NPP) Yes / No Addendum: Patient left AMA ATTESTATION BY PHYSICIAN I have seen and examined the patient. I reviewed the documentation, medical decision making, and treatment plan as noted by the mid-level provider above. I agree with the findings and plan of care. Elizabeth Leahy MD, ELIZABETH NP Mar 12, 2025 13:03
[2025-03-12] MEDS ORDERED: PoTASSium chl 10% ELIXIR 20MEQ 20 MEQ/15 ML UDCUP PO PRN (13:30)
[2025-03-12] MEDS ORDERED: LACTULOSE 20 GM/30 ML UDCUP PO PRN (13:30)
[2025-03-12] MEDS ORDERED: MAGNESIUM 2GM PREMIX 50ML 50 ML IV PRN (13:30)
[2025-03-12] MEDS ORDERED: NITROGLYCERIN 0.4 MG SL TAB SL PRN (13:30)
[2025-03-12] MEDS ORDERED: 0.9%NACL 1000ML 1,000 ML IV SCH (13:30)
[2025-03-12] MEDS ORDERED: ASPIRIN 81 MG EC TAB PO ONE (13:30)
[2025-03-12] MEDS ORDERED: PoTASSium chloRIDE 20MEQ ER 20 MEQ ERTAB PO PRN (13:30)
--- NOTE | 2025-03-12 14:15 | NUR ---
PT STATES WANTING TO GO HOME. PT WANTS TO LEAVE AGAINST MEDICAL ADVICE. PT WAS ADVISED OF THE POSSIBLE RISKS OF REFUSING ADMISSION. VERBALIZED UNDERSTANDING FEELS BETTER WANTS TO GO HOME. SPOUSE, ER DR, AND PRIMARY NURSE AT BEDSIDE. NOTIFIED HOSPITALIST.
[2025-03-12 14:27] VITALS: BP 158/62; PULSE 67; RESP 18; TEMP 98.2; O2SAT 98
--- NOTE | 2025-03-12 14:28 | NUR ---
AMA FORM SIGNED BY PATIENT AND SPOUSE. PRIMARY NURSE AND HOSPITALIST [employer] OFFICER AT BEDSIDE.
--- NOTE | 2025-03-12 15:50 | EKG ---
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
[2025-03-12] MEDS ORDERED: FAMOTIDINE 20MG TAB PO SCH (21:00)
[2025-03-13] MEDS ORDERED: ASPIRIN 81 MG EC TAB PO SCH (09:00)
== END 2025-03-12 14:39 | disposition left against medical advice (07) ==
LOC: EDH 11:18
DX: R07.89 Other chest pain (principal); N39.0 Urinary tract infection, site not specified; N17.9 Acute kidney failure, unspecified; D64.9 Anemia, unspecified; E87.1 Hypo-osmolality and hyponatremia; E87.8 Other disorders of electrolyte and fluid balance, not elsewhere classified; G20.A1 Parkinson's disease without dyskinesia, without mention of fluctuations; I25.2 Old myocardial infarction; F17.200 Nicotine dependence, unspecified, uncomplicated; Z79.82 Long term (current) use of aspirin; Z79.899 Other long term (current) drug therapy; Z98.890 Other specified postprocedural states; Z95.5 Presence of coronary angioplasty implant and graft; Z90.49 Acquired absence of other specified parts of digestive tract; Z53.29 Procedure and treatment not carried out because of patient's decision for other reasons
CPT/HCPCS: 99285; 96365; 71045; 96375; 82550; 83735; 84484 ×2; 80048; 85025; 87086 ×2; 87186; 81001; 36415; 93005; J0696; J2470

== ENCOUNTER → 2025-05-11 | Outpatient (CLI) | payer OTHER ==
[~2025-05-11] MED LIST changes: +OXYM-30 NS; +SODI1TAB4 PO; +SULF1TAB42 PO; +TAMS-55 PO; +TORS20TA4 PO
--- NOTE | 2025-05-11 21:10 | HMCSR ---
APPROVED REPORT EXAM: Two-dimensional and M-mode echocardiogram with Doppler and color Doppler. INDICATION ICD: 125.10 2D Dimensions RVDd3.2 cmLVEF(%)51.2 (>50%)LVED Vol(simp.)103.7 mL IVSd0.7 (0.7-1.1cm)FS(%)26 %LVES Vol(simp.)43.5 mL LVDd5.4 (3.8-5.6cm)LA (2D)3.4 (1.6-4.0cm)LVEF(%, simp.)58 % PWd1.0 (0.7-1.1cm)Ao Root(2D)2.8 (2.0-3.7cm)LA ESV INDEX (BP)24.87 mL/m2 LVDs4.0 (2.5-4.0cm)LVOT diam2.0 (1.8-2.4cm) IVC diam1.5 cm M-Mode Dimensions EPSS0.8 cm LA (MM)3.5 (1.6-4.0cm) Ao Root(MM)3.2 (2.0-3.7cm) Aortic Valve AoV Vmax1.5 m/Claudia Peak GR8.4 mmHgLVOT Vmax1.0 m/s AoV VTI0.3 mAo Mean GR4.5 mmHgLVOT VTI0.24 m YELENA (VMAX)2.14 cm2AVA (VTI) 2.1 cm2 Mitral Valve MV E Vmax99.2 cm/sDECEL Ymts876 ms MV A Ukmu413.3 cm/sP 1/2 T82 ms E/A ratio0.8MVA (PHT)2.7 cm2 TDI E/E' Gwcqfw16.1E/E' Favuyyt43.0 Medial E' Peak V6.17 cm/sLateral E' Peak V9.93 cm/s Pulmonary Valve PV Vmax1.1 m/sPV VTI0.26 mPV Mean GR2.7 mmHg PV Peak GR4.6 mmHg Tricuspid Valve RAP (EST) 3 mmHg Left Ventricle The left ventricle is normal size. There is normal LV segmental wall motion. There is normal left sarah tricular wall thickness. LVEF is 55%. Indeterminate diastolic dysfunction. Right Ventricle The right ventricle is normal size. The right ventricular systolic function is normal. Atria The left atrium size is normal. The right atrium size is normal. Aortic Valve The aortic valve is trileaflet normal in structure. No aortic regurgitation is present. There is no a ortic valvular stenosis. Mitral Valve The mitral valve is normal in structure. There is trace of mitral valve regurgitation noted. There is no mitral valve stenosis. Tricuspid Valve The tricuspid valve is normal in structure. There is trace of tricuspid valve regurgitation noted. Pulmonic Valve The pulmonary valve is normal in structure. There is no pulmonic valvular regurgitation. Great Vessels The aortic root is normal in size. The IVC is normal in size and collapses >50% with inspiration. Pericardium There is no pericardial effusion. Other Information Quality : Technically difficult study due to body habitus Conclusion LVEF is 55%.
== END | disposition home or self-care (01) ==
LOC: RAH 12:57
PROVIDERS: ATTEND Chiropractor
DX: I25.10 Atherosclerotic heart disease of native coronary artery without angina pectoris (principal); D45 Polycythemia vera
CPT/HCPCS: 93306

== ENCOUNTER 2025-06-11 03:07 | Emergency (ER) | payer OTHER ==
[~2025-06-11] VITALS: Ht 177.8 cm; Wt 86.2 kg
[2025-06-11 03:08] VITALS: BP 149/58; PULSE 64; RESP 20; TEMP 97.9
--- NOTE | 2025-06-11 03:22 | ERN ---
General Chief Complaint: Urinary Catheter Problems Stated Complaint: DOBSON ISSUE Time Seen by MD: 03:18 History of Present Illness Initial Comments 74-year-old male came in for Dobson catheter evaluation. Patient states that at home he did not see any urine in the bag however upon arrival he started noticed urine collecting in the bag. Patient otherwise has no concerns. Allergies: Coded Allergies: No Known Drug Allergies (Unverified Allergy, Unknown, 06/06/21) Home Meds Active Scripts Sodium Chloride (Sodium Chloride) 1,000 Mg Tablet.brenda, 1 TAB PO BID for 30 Days, #60 TAB 0 Refills Prov:ISIDORO JOE MD 04/19/25 Sulfamethoxazole/Trimethoprim (Bactrim Ds Tablet) 800 Mg-160 Mg Tablet, 1 TAB PO BID for 10 Days, #20 TAB 0 Refills Prov:ISIDORO JOE MD 04/19/25 Reported Medications Oxymetazoline HCl (Oxymetazoline HCl) 0.05 % [place], 2 SPRAY NS BID for 30 Days, #15 ML 0 Refills 04/17/25 Torsemide (Torsemide) 20 Mg Tablet, 1 TAB PO DAILY for 30 Days, #30 TAB 0 Refills 04/17/25 Tamsulosin HCl (Flomax) 0.4 Mg Cap.er.24h, 1 CAP PO DAILY for 30 Days, #30 CAP 0 Refills 04/17/25 Folic Acid/Vit Bcomp,C (Renal-Jack Tablet) 0.8 Mg Tablet, 1 TAB PO DAILY for 30 Days, #30 TAB 0 Refills 11/21/24 Aspirin (Aspirin) 81 Mg Tab.chew, 1 TAB PO DAILY for 30 Days, #30 TAB 0 Refills 11/21/24 Hydralazine HCl (Hydralazine HCl) 50 Mg Tablet, 75 MG PO DAILY, TAB 11/21/24 Acetylcysteine (Mucomyst) 100 Mg/Ml (10 %) Solution, 3000 MG IH TID, ML 11/21/24 Lansoprazole (Lansoprazole) 15 Mg Capsule.dr, 15 MG PO AM, CAP 11/21/24 Finasteride (Finasteride) 5 Mg Tablet, 5 MG PO AM, TAB 11/21/24 Metoprolol Succinate (Metoprolol Succinate) 100 Mg Tab.er.24h, 150 MG PO AM, TAB 11/21/24 Aspirin (ASPIRIN 81 MG ECTAB) 81 Mg Ectab, 81 MG PO DAILY, TAB.EC 01/10/24 Venlafaxine HCl (Effexor Xr) 150 Mg Cap.er.24h, 150 MG PO DAILY, CAPSULE.DR 01/10/24 Carbidopa/Levodopa (Carbidopa-Levo 25-100 mg Odt) 1 Each Tab.rapdis, 1 EACH PO TID, TAB 01/29/23 Nitroglycerin (Nitroglycerin) 0.4 Mg Tab.subl, 0.4 MG SL AD, TAB.SL 07/31/21 Losartan Potassium (Losartan Potassium) 100 Mg Tablet, 100 MG PO DAILY, TAB 07/16/21 Aripiprazole (Aripiprazole) 15 Mg Tablet, 15 MG PO DAILY, TAB 07/16/21 Past Medical History Past Medical History: Heart Disease Medical History Other: PARKINSONS Past Surgical History: Appendectomy Surgical History Other: CATARACT SX Family History Family History: CAD, HTN Social History Social History: Smokers, Lives with family, Other ROS Dictation None Physical Exam General Appearance: (+) no apparent distress Orientation: (+) alert, (+) oriented x 3 Respiratory: (+) chest non-tender, (+) lungs clear Heart: (+) regular, (+) no gallop Vascular: (+) no edema, (+) normal peripheral pulse Gastrointestinal: (+) soft, (+) non-tender, (+) no organomegaly, (+) bowel sound present MDM MDM: Differential diagnosis: Rationale: Tests considered and ordered secondary to shared decision making include: Previous outside records reviewed: Old ER visits. Risk of complication and/or morbidity or mortality of patient management: None Medications-Per medication reconciliation Need for hospitalization: Patient does not meet criteria for hospitalization. Need for emergency major/minor surgery: No There are no social concerns with this patient. Prescription drug management Prescriptions will include symptomatic care Patient's prior external medical records from other ER visits were reviewed by me as indicated. Prior testing and results from previous visits were reviewed. Prior tests were taken into account with medical decision making and resource utilization, independent historian/historians were used to obtain complete medical history. I independently interpreted the test that were performed, results were reviewed by me and considered findings on radiology if ordered. Medical management and examination interpretation discussions were had by me with other qualified healthcare professionals as indicated for the patient's care. ED Course Vital Signs Date Time Temp Pulse Resp B/P (MAP) Pulse Ox O2 Delivery O2 Flow Rate FiO2 06/11/25 03:08 97.9 64 20 149/58 100 Room Air DX & DISP Disposition: Discharge Departure Impression: Primary Impression: Encounter for evaluation of Dobson catheter Condition: Stable Referrals: VANESSA SMITH MD (PCP) MINISTERIO ASENCIO MD Jun 11, 2025 03:22
--- NOTE | 2025-06-11 03:23 | NUR ---
BLADDER SCAN SHOWED 5CC URINE
== END 2025-06-11 03:33 | disposition home or self-care (01) ==
LOC: EDH 03:07
DX: T83.098A Other mechanical complication of other urinary catheter, initial encounter (principal); I51.9 Heart disease, unspecified; G20.A1 Parkinson's disease without dyskinesia, without mention of fluctuations; F17.200 Nicotine dependence, unspecified, uncomplicated; Z79.82 Long term (current) use of aspirin; Z79.899 Other long term (current) drug therapy; Z90.49 Acquired absence of other specified parts of digestive tract; Y84.6 Urinary catheterization as the cause of abnormal reaction of the patient, or of later complication, without mention of misadventure at the time of the procedure
CPT/HCPCS: 99282; 99284